=== PATIENT | female | born 1940 | race Caucasian/White ===

== ENCOUNTER 2023-12-14 18:31 | Inpatient (IN) | payer MEDICARE ==
--- NOTE | 2023-12-14 19:12 | ED ---
Recheck HPI - General Chief Complaint: Recheck/Abnormal Lab/Rx Stated Complaint: Infection Time Seen by Provider: 12/14/23 18:35 Source: EMS, RN notes reviewed, old records reviewed, Caregiver Mode of arrival: EMS Limitations: no limitations - History of Present Illness Initial Comments: This is a 83-year-old female to the ER for evaluation of debility. Patient is approaching end-of-life comfort care situation, patient has significant areas and aspects of her body that have pressure sores secondary to diminished mobility or unable to move on her own. He is here due to different pain issues that she does suffer from she also has a old lumbar spinal fracture that is being rejected by her body and protruding through her skin in her back that is i noperable. Patient presents with just severe pain generalized pain body aches and pains MD Complaint: wound re-check, abnormal lab, needs IV antibiotics, medication refill request -: days(s) Returns Today for: wound recheck, cellulitis follow-up, needs IV antibiotics, persistent/worsening pain related to initial visit Symptoms Since Prior Visit: no new symptoms Associated Symptoms: fever, chills, malaise, nausea Treatments Prior to Arrival: other (0) - Related Data Home Medications Medication Instructions Recorded Confirmed Acetaminophen [Tylenol Extra 500 mg PO Q6H PRN 12/14/23 12/17/23 Strength] Furosemide [Lasix] 20 mg PO DAILY 12/14/23 12/17/23 Lansoprazole [Prevacid] 30 mg PO DAILY 12/14/23 12/17/23 Losartan Potassium 50 mg PO DAILY 12/14/23 12/17/23 Magnesium Oxide [Mag-Ox] 400 mg PO DAILY 12/14/23 12/17/23 Morphine Sulfate ER [Ms Contin] 30 mg PO Q12HR 12/14/23 12/17/23 Silver Sulfadiazine [Silver 1 applic TOPICAL DIRECTED 12/14/23 12/17/23 Sulfadiazine 1%] Allergies Allergy/AdvReac Type Severity Reaction Status Date / Time acetaminophen [From Vicodin] Allergy Rash/Hives Verified 12/14/23 18:45 hydrocodone [From Vicodin] Allergy Rash/Hives Verified 12/14/23 18:45 levofloxacin [From Levaquin] Allergy Rash/Hives Verified 12/14/23 18:45 lidocaine Allergy Rash/Hives Verified 12/14/23 18:45 Penicillins Allergy Rash/Hives Verified 12/14/23 18:45 sulfamethoxazole Allergy Rash/Hives Verified 12/14/23 18:45 [From Bactrim] trimethoprim [From Bactrim] Allergy Rash/Hives Verified 12/14/23 18:45 Review of Systems ROS Statement: Those systems with pertinent positive or pertinent negative responses have been documented in the HPI. ROS Other: All systems not noted in ROS Statement are negative. Past Medical History Past Medical History: Hypertension History of Any Multi-Drug Resistant Organisms: None Reported Past Surgical History: Hysterectomy, Orthopedic Surgery Past Psychological History: No Psychological Hx Reported Smoking Status: Former smoker General Exam Limitations: no limitations, altered mental status General appearance: alert, in no apparent distress, anxious, in distress Head exam: Present: atraumatic, normocephalic, normal inspection Eye exam: Present: normal appearance, PERRL, EOMI. Absent: scleral icterus, conjunctival injection, periorbital swelling ENT exam: Present: normal exam, mucous membranes moist Neck exam: Present: normal inspection. Absent: tenderness, meningismus, lymphadenopathy Respiratory exam: Present: normal lung sounds bilaterally. Absent: respiratory distress, wheezes, rales, rhonchi, stridor Cardiovascular Exam: Present: regular rate, normal rhythm, normal heart sounds. Absent: systolic murmur, diastolic murmur, rubs, gallop, clicks GI/Abdominal exam: Present: soft, normal bowel sounds. Absent: distended, tenderness, guarding, rebound, rigid Extremities exam: Present: normal inspection, full ROM, normal capillary refill. Absent: tenderness, pedal edema, joint swelling, calf tenderness Back exam: Present: normal inspection Neurological exam: Present: alert, oriented X3, CN II-XII intact Psychiatric exam: Present: normal affect, normal mood Skin exam: Present: warm, dry, intact, normal color. Absent: rash Course Vital Signs 12/14/23 12/14/23 12/14/23 18:37 22:05 23:06 Temperature 98.6 F Pulse Rate 75 101 H 95 Pulse Rate [ Right Supine] Respiratory 18 16 Rate Blood Pressure 105/55 102/40 Blood Pressure [Right Arm Supine] O2 Sat by Pulse 90 L 97 Oximetry 12/15/23 12/15/23 12/15/23 02:00 05:43 06:33 Temperature Pulse Rate 96 98 105 H Pulse Rate [ Right Supine] Respiratory 20 16 20 Rate Blood Pressure 108/50 100/56 116/51 Blood Pressure [Right Arm Supine] O2 Sat by Pulse 95 100 95 Oximetry 12/15/23 12/15/23 12/15/23 07:34 08:10 10:51 Temperature Pulse Rate 98 108 H Pulse Rate [ Right Supine] Respiratory 14 18 Rate Blood Pressure 101/46 151/72 Blood Pressure [Right Arm Supine] O2 Sat by Pulse 94 L 100 98 Oximetry 12/15/23 12/15/23 12/15/23 12:00 16:00 20:00 Temperature 97.9 F 97.9 F Pulse Rate Pulse Rate [ 105 H 98 Right Supine] Respiratory 18 18 16 Rate Blood Pressure Blood Pressure 110/68 142/79 124/58 [Right Arm Supine] O2 Sat by Pulse 91 L 96 98 Oximetry - Reevaluation(s) Reevaluation #1: 12/14/23 21:44 Medical records reviewed Reevaluation #2: 12/14/23 21:44 Patient has relatively no change in symptoms here in the ER Reevaluation #3: 12/14/23 21:44 Patient informed of results questions answered Reevaluation #4: Was pt. sent in by a medical professional or institution (, PA, HOSPITAL SECURITY OFFICER, urgent care, hospital, or intermediate...) When possible be specific @ -no Did you speak to anyone other than the patient for history (EMS, parent, family, police, friend...)? What history was obtained from this source @ -no Did you review nursing and triage notes (agree or disagree)? Why? @ -agree Are old charts reviewed (outside hosp., previous admission, EMS record, old EKG, old radiological studies, urgent care reports/EKG's, intermediate records)? Report findings @ -yes Differential Diagnosis (chest pain, altered mental status, abdominal pain women, abdominal pain men, vaginal bleeding, weakness, fever, dyspnea, syncope, headache, dizziness, GI bleed, back pain, seizure, CVA, palpatations, mental health, musculoskeletal)? @ -prior EKG interpreted by me (3pts min.). @ -yes X-rays interpreted by me (1pt min.). @ -yes negative for acute disease CT interpreted by me (1pt min.). @ -no U/S interpreted by me (1pt. min.). @ -no What testing was considered but not performed or refused? (CT, X-rays, U/S, labs)? Why? @ -none What meds were considered but not given or refused? Why? @ -none Did you discuss the management of the patient with other professionals (professionals i.e. Dr., PA, HOSPITAL SECURITY OFFICER, lab, RT, psych nurse, social studies teacher, want ad supervisor, teacher, [employer] officer, manager case management)? Give summary @ -no Was smoking cessation discussed for >3mins.? @ -no Were there social determinants of health that impacted care today? How? (Homelessness, low income, unemployed, alcoholism, drug addiction, transportation, low edu. Level, literacy, decrease access to med. care, halfway, rehab)? @ -none Was there de-escalation of care discussed even if they declined (Discuss DNR or withdrawal of care, Hospice)? DNR status @ -no What co-morbidities impacted this encounter? (DM, HTN, Smoking, COPD, CAD, Cancer, CVA, ARF, Chemo, Hep., AIDS, mental health diagnosis, sleep apnea, morbid obesity)? @ -none Was patient admitted / discharged? Hospital course, mention meds given and route, prescriptions, significant lab abnormalities, going to OR and other pertinent info. @ - 83 female to ER with multiple wounds secondary to surgical complications as well as debility with ulcers secondary to immobility. Patient has infections of these areas and will admit for significant IV antibiotics with really elevated white blood cell count sepsis Admitted Was critical care preformed (if so, how long)? @ -yes31 Undiagnosed new problem with uncertain prognosis? @ -no Drug Therapy requiring intensive monitoring for toxicity (Heparin, Nitro, Insulin, Cardizem)? @ -no Were any procedures done? @ -no Diagnosis/symptom? @ -Sepsis wound infection, chronic nonhealing wound Acute, or Chronic, or Acute on Chronic? @ -Acute Uncomplicated (without systemic symptoms) or Complicated (systemic symptoms)? @ -Complicated Side effects of treatment? @ -no Exacerbation, Progression, or Severe Exacerbation? @ -exacerbation Poses a threat to life or bodily function? How? (Chest pain, USA, OK, pneumonia, PE, COPD, DKA, ARF, appy, cholecystitis, CVA, Diverticulitis, Homicidal, Renetta cidal, threat to staff... and all critical care pts) @ -yes extremes of age Reevaluation #5: Differential Weakness: Hypoglycemia, shock, sepsis, hyponatremia, anemia, infection, OK, ETOH, adverse medicine reaction, overdose, stroke, this is not meant to be an all-inclusive list. - Consultations Consultation #1: Spoke with [facility] who agrees to admit this patient Procedures - Sepsis Sepsis Focused Exam #1 Time Sepsis Criteria Met: 20:00 Sepsis Focused Exam Date: 12/14/23 Sepsis Focused Exam Time: 23:55 Sepsis Focused Exam Complete: Yes Vital Signs & RN Notes Reviewed: Yes Capillary Refill: < 2 Seconds: Fingers, Toes Peripheral Pulses: Normal: Radial (R), Radial (L), Posterior Tibialis (R), Pos terior Tibialis (L), Dorsalis Pedis (R), Dorsalis Pedis (L) Skin Color: Normal for Patient, Flushed Respiratory Exam: respiratory distress, wheezes Cardiovascular Exam: regular rate Medical Decision Making - Medical Decision Making 83 female to ER with multiple wounds secondary to surgical complications as well as debility with ulcers secondary to immobility. Patient has infections of these areas and will admit for significant IV antibiotics with really elevated white blood cell count sepsis - Lab Data Result diagrams: 12/17/23 08:17 12/16/23 10:20 Lab Results 12/14/23 12/14/23 12/14/23 Range/Units 19:17 19:17 19:17 WBC 35.7 H (3.8-10.6) k/uL RBC 5.00 (3.80-5.40) m/uL Hgb 14.6 (11.4-16.0) gm/dL Hct 46.3 H (34.0-46.0) % MCV 92.7 (80.0-100.0) fL MCH 29.3 (25.0-35.0) pg MCHC 31.6 (31.0-37.0) g/dL RDW 13.1 (11.5-15.5) % Plt Count 508 H (150-450) k/uL MPV 9.2 Neutrophils % (Manual) 86 % Band Neuts % (Manual) 9 % Lymphocytes % (Manual) 2 % Monocytes % (Manual) 3 % Metamyelocytes % 1 % Neutrophils # (Manual) 33.90 H (1.3-7.7) k/uL Lymphocytes # (Manual) 0.71 L (1.0-4.8) k/uL Monocytes # (Manual) 1.07 H (0-1.0) k/uL Metamyelocytes # (Man) 0.36 H (0) k/uL Nucleated RBCs 0 (0-0) /100 WBC Manual Slide Review Performed PT 11.4 (10.0-12.5) sec INR 1.0 (<1.2) APTT 36.4 H (22.0-30.0) sec Sodium 130 L (137-145) mmol/L Potassium 3.4 L (3.5-5.1) mmol/L Chloride 89 L (98-107) mmol/L Carbon Dioxide 20 L (22-30) mmol/L Anion Gap 21 mmol/L BUN 75 H (7-17) mg/dL Creatinine 3.37 H (0.52-1.04) mg/dL Est GFR (CKD-EPI)AfAm 14 (>60 ml/min/1.73 sqM) Est GFR (CKD-EPI)NonAf 12 (>60 ml/min/1.73 sqM) Glucose 69 L (74-99) mg/dL Lactic Ac Sepsis Rflx Plasma Lactic Acid Messi (0.7-2.0) mmol/L Calcium 8.6 (8.4-10.2) mg/dL Phosphorus 6.4 H (2.5-4.5) mg/dL Magnesium 2.0 (1.6-2.3) mg/dL Total Bilirubin 0.7 (0.2-1.3) mg/dL AST 67 H (14-36) U/L ALT 22 (4-34) U/L Alkaline Phosphatase 120 (38-126) U/L Troponin I (0.000-0.034) ng/mL NT-Pro-B Natriuret Pep 3900 pg/mL Total Protein 7.1 (6.3-8.2) g/dL Albumin 3.9 (3.5-5.0) g/dL 12/14/23 12/14/23 12/14/23 Range/Units 19:17 19:17 19:55 WBC (3.8-10.6) k/uL RBC (3.80-5.40) m/uL Hgb (11.4-16.0) gm/dL Hct (34.0-46.0) % MCV (80.0-100.0) fL MCH (25.0-35.0) pg MCHC (31.0-37.0) g/dL RDW (11.5-15.5) % Plt Count (150-450) k/uL MPV Neutrophils % (Manual) % Band Neuts % (Manual) % Lymphocytes % (Manual) % Monocytes % (Manual) % Metamyelocytes % % Neutrophils # (Manual) (1.3-7.7) k/uL Lymphocytes # (Manual) (1.0-4.8) k/uL Monocytes # (Manual) (0-1.0) k/uL Metamyelocytes # (Man) (0) k/uL Nucleated RBCs (0-0) /100 WBC Manual Slide Review PT (10.0-12.5) sec INR (<1.2) APTT (22.0-30.0) sec Sodium (137-145) mmol/L Potassium (3.5-5.1) mmol/L Chloride (98-107) mmol/L Carbon Dioxide (22-30) mmol/L Anion Gap mmol/L BUN (7-17) mg/dL Creatinine (0.52-1.04) mg/dL Est GFR (CKD-EPI)AfAm (>60 ml/min/1.73 sqM) Est GFR (CKD-EPI)NonAf (>60 ml/min/1.73 sqM) Glucose (74-99) mg/dL Lactic Ac Sepsis Rflx Y Plasma Lactic Acid Messi 2.1 H* (0.7-2.0) mmol/L Calcium (8.4-10.2) mg/dL Phosphorus (2.5-4.5) mg/dL Magnesium (1.6-2.3) mg/dL Total Bilirubin (0.2-1.3) mg/dL AST (14-36) U/L ALT (4-34) U/L Alkaline Phosphatase (38-126) U/L Troponin I 0.064 H* (0.000-0.034) ng/mL NT-Pro-B Natriuret Pep pg/mL Total Protein (6.3-8.2) g/dL Albumin (3.5-5.0) g/dL - EKG Data -: EKG Interpreted by Me (EKG is sinus tachycardia 122 AK 131 QRS 90 QTc 410) - Radiology Data Radiology results: report reviewed (Chest x-ray is negative for acute disease), image reviewed Critical Care Time Critical Care Time: Yes Total Critical Care Time: 31 Disposition Clinical Impression: Stage II pressure ulcer of left hip, Unspecified hydronephrosis, Stage II pressure ulcer of sacral region, 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
[2023-12-14] MEDS: MORPHINE SULFATE 4 MG/ML SYRINGE IV STA (19:33)
[2023-12-14] MEDS: SODIUM CHLORIDE 0.9% 1,000 ML IV STA ×2 (19:33→22:50)
[2023-12-14] MEDS: ONDANSETRON 4 MG/2 ML VIAL IVP STA (19:34)
[2023-12-14 19:35] LABS: HCT 46.3 % (34.0-46.0); HGB 14.6 gm/dL (11.4-16.0); MCH 29.3 pg (25.0-35.0); MCHC 31.6 g/dL (31.0-37.0); MCV 92.7 fL (80.0-100.0); Mean Platelet Volume 9.2; Platelet Count 508 k/uL (150-450); RDW 13.1 % (11.5-15.5); WBC 35.7 k/uL (3.8-10.6)
[2023-12-14 19:46] LABS: Partial Thromboplastin Time 36.4 sec (22.0-30.0); Prothrombin Time 11.4 sec (10.0-12.5)
[2023-12-14 19:50] LABS: ALT 22 U/L (4-34); AST 67 U/L (14-36); African American GFR (CKD) 14 (>60 ml/min/1.73 sqM); Albumin 3.9 g/dL (3.5-5.0); Alkaline Phosphatase 120 U/L (38-126); Anion Gap 21 mmol/L; Blood Urea Nitrogen 75 mg/dL (7-17); Calcium 8.6 mg/dL (8.4-10.2); Carbon Dioxide 20 mmol/L (22-30); Chloride 89 mmol/L (98-107); Glucose 69 mg/dL (74-99); Non-African American GFR(CKD) 12 (>60 ml/min/1.73 sqM); Phosphorus 6.4 mg/dL (2.5-4.5); Potassium 3.4 mmol/L (3.5-5.1); Sodium 130 mmol/L (137-145); Total Bilirubin 0.7 mg/dL (0.2-1.3); Total Protein 7.1 g/dL (6.3-8.2)
[2023-12-14 19:58] LABS: NT-Pro-B-Type Natriuretic Pept 3900 pg/mL
[2023-12-14 20:08] LABS: Band Neutrophils % 9 %; Lymphocytes # (M) 0.71 k/uL (1.0-4.8); Metamyelocytes # (M) 0.36 k/uL (0); Metamyelocytes % 1 %; Monocytes # (M) 1.07 k/uL (0-1.0); Neutrophils % (M) 86 %; Nucleated Red Blood Cells 0 /100 WBC (0-0); Total Cells Counted 200
[2023-12-14] MEDS ORDERED: VANCOMYCIN IV PER PHARMACY 1 EACH MISC MISCELLANE PRN (21:40)
[2023-12-14] MEDS ORDERED: NALOXONE 0.4 MG/ML 1 ML VIAL IV PRN (21:41)
[2023-12-14] MEDS ORDERED: ONDANSETRON 4 MG/2 ML VIAL IVP PRN (21:41)
[2023-12-14] MEDS ORDERED: IPRATROPIUM-ALBUTEROL 3 ML NEB INHALATION PRN (21:43)
[2023-12-14] MEDS: IPRATROPIUM-ALBUTEROL 3 ML NEB INHALATION STA (22:03)
[2023-12-14] MEDS: SODIUM CHLORIDE 0.9% 500 ML 500 ML IV STA (22:49)
[2023-12-14] MEDS: SODIUM CHLORIDE 0.9% 500 ML 500 ML IV SCH (22:50)
[2023-12-14] MEDS: VANCOMYCIN 750 MG in SODIUM CHLORIDE 0.9% 250 ML IVPB ONE (22:51)
[2023-12-14] MEDS: HYDROCORTISONE SUCCINATE 100 MG/2 ML VIAL IV STA (23:30)
--- NOTE | 2023-12-14 23:45 | XR ---
EXAM: XR Chest, 1 View CLINICAL HISTORY: ITS.REASON XR Reason: weak TECHNIQUE: Frontal view of the chest. COMPARISON: No relevant prior studies available. FINDINGS: Lungs: Emphysema. No consolidation. Pleural space: Unremarkable. No pleural effusion or pneumothorax. Heart: Unremarkable. No cardiomegaly or vascular congestion. Bones/joints: Partially imaged fixation hardware in the lower thoracic spine with mid thoracic vertebral augmentation. No fracture. Vasculature: Calcified thoracic aorta. IMPRESSION: No acute findings in the chest.
[2023-12-15] MEDS: SODIUM CHLORIDE 0.9% 1,000 ML IV SCH (02:02)
[2023-12-15] MEDS: MORPHINE SULFATE 4 MG/ML SYRINGE IV PRN (02:24)
[2023-12-15 03:45] LABS: Basophils # (A) 0.1 k/uL (0-0.2); Basophils % (A) 1 %; Eosinophils # (A) 0.1 k/uL (0-0.7); Eosinophils % (A) 1 %; Lymphocytes # (A) 0.3 k/uL (1.0-4.8); Lymphocytes % (A) 1 %; MCH 29.8 pg (25.0-35.0); MCHC 31.8 g/dL (31.0-37.0); MCV 93.5 fL (80.0-100.0); Mean Platelet Volume 7.9; Monocytes # (A) 0.6 k/uL (0-1.0); Monocytes % (A) 2 %; Neutrophils # (A) 23.4 k/uL (1.3-7.7); Neutrophils % (A) 95 %; Platelet Count 313 k/uL (150-450); RBC 3.85 m/uL (3.80-5.40); RDW 13.1 % (11.5-15.5); WBC 24.8 k/uL (3.8-10.6)
[2023-12-15 03:47] LABS: HGB 11.5 gm/dL (11.4-16.0)
[2023-12-15 04:01] LABS: ALT 19 U/L (4-34); AST 61 U/L (14-36); African American GFR (CKD) 16 (>60 ml/min/1.73 sqM); Albumin 2.3 g/dL (3.5-5.0); Alkaline Phosphatase 63 U/L (38-126); Anion Gap 16 mmol/L; Blood Urea Nitrogen 75 mg/dL (7-17); Carbon Dioxide 14 mmol/L (22-30); Chloride 102 mmol/L (98-107); Glucose 79 mg/dL (74-99); Magnesium 1.8 mg/dL (1.6-2.3); Non-African American GFR(CKD) 14 (>60 ml/min/1.73 sqM); Phosphorus 5.3 mg/dL (2.5-4.5); Potassium 3.5 mmol/L (3.5-5.1); Sodium 132 mmol/L (137-145); Total Bilirubin 0.4 mg/dL (0.2-1.3); Total Protein 4.8 g/dL (6.3-8.2)
[2023-12-15] MEDS: VANCOMYCIN 750 MG in SODIUM CHLORIDE 0.9% 250 ML IVPB ONE (12:25)
--- NOTE | 2023-12-15 12:52 | US ---
EXAMINATION TYPE: US kidneys/renal and bladder DATE OF EXAM: 12/15/2023 COMPARISON: NONE CLINICAL INDICATION: Female, 83 years old with history of Connie; EXAM MEASUREMENTS: Right Kidney: 7.2 x 4.5 x 3.9 cm Left Kidney: Unable to image Limited exam due to patient movement and non cooperation. Left kidney and bladder not imaged due to p atient declining Right Kidney: Moderate to severe hydronephrosis noted assessment for mass limited. No obvious calcif ications. Left Kidney: Patient was uncooperative throughout exam and declined continuing the exam Bladder: Patient declined IMPRESSION: Moderate to severe right-sided hydronephrosis. Limited assessment of the left kidney and bladder.
--- NOTE | 2023-12-15 13:58 | P.NPCON ---
History of Present Illness - Reason for Consult acute renal failure - History of Present Illness patient is an 83-year-old female who was admitted to the hospital with mental status changes as per family. Patient has an old spinal fracture and has a protruding bone through the skin. She is not a surgical candidate and has had been complaining of multiple aches and pains. Patient admits to history of urinary tract infections but has not seen a wellness program administrator previously. It is unclear if there is underlying history of chronic kidney disease. Patient states she has been voiding but has had a Wells catheter as previously. History of diarrhea recently according to the family. Blood pressure is on the lower side. Patient was on losartan which is currently on hold. maintained on IV fluids. serum creatinine was 3.3 on admission and decreased to 3.0 today. no previous labs available for comparison. chest x-ray is unremarkable. Ultrasound of the kidneys shows moderate to severe right hydronephrosis. Patient refused to have the exam continued. Review of Systems as per HPI. Past Medical History Past Medical History: Hypertension History of Any Multi-Drug Resistant Organisms: None Reported Past Surgical History: Hysterectomy, Orthopedic Surgery Past Psychological History: No Psychological Hx Reported Smoking Status: Former smoker Medications and Allergies Home Medications Medication Instructions Recorded Confirmed Type Acetaminophen [Tylenol Extra 500 mg PO Q6H PRN 12/14/23 12/14/23 History Strength] Furosemide [Lasix] 20 mg PO DAILY 12/14/23 12/15/23 History Lansoprazole [Prevacid] 30 mg PO DAILY 12/14/23 12/15/23 History Losartan Potassium 50 mg PO DAILY 12/14/23 12/15/23 History Magnesium Oxide [Mag-Ox] 400 mg PO DAILY 12/14/23 12/14/23 History Morphine Sulfate ER [Ms Contin] 30 mg PO Q12HR 12/14/23 12/14/23 History Silver Sulfadiazine [Silver 1 applic TOPICAL DIRECTED 12/14/23 12/14/23 History Sulfadiazine 1%] Allergies Allergy/AdvReac Type Severity Reaction Status Date / Time acetaminophen [From Vicodin] Allergy Rash/Hives Verified 12/14/23 18:45 hydrocodone [From Vicodin] Allergy Rash/Hives Verified 12/14/23 18:45 levofloxacin [From Levaquin] Allergy Rash/Hives Verified 12/14/23 18:45 lidocaine Allergy Rash/Hives Verified 12/14/23 18:45 Penicillins Allergy Rash/Hives Verified 12/14/23 18:45 sulfamethoxazole Allergy Rash/Hives Verified 12/14/23 18:45 [From Bactrim] trimethoprim [From Bactrim] Allergy Rash/Hives Verified 12/14/23 18:45 Physical Exam Vitals: Vital Signs Temp Pulse Resp BP Pulse Ox 12/15/23 10:51 108 H 18 151/72 98 12/15/23 08:10 100 12/15/23 07:34 98 14 101/46 94 L 12/15/23 06:33 105 H 20 116/51 95 12/15/23 05:43 98 16 100/56 100 12/15/23 02:00 96 20 108/50 95 12/14/23 23:06 95 16 102/40 97 12/14/23 22:05 101 H 12/14/23 18:37 98.6 F 75 18 105/55 90 L Intake and Output 12/14/23 12/15/23 12/15/23 22:59 06:59 14:59 Other: Weight 38.555 kg patient is awake, comfortable, no acute distress. Examination of the heart S1 and S2 Examination of the lungs bilateral breath sounds are heard Abdomen is soft nontender examination of lower extremity shows no evidence of edema LOG DECK TENDER exam shows patient is moving all 4 extremities. Results - Lab Results Most recent lab results Calcium 7.0 mg/dL (8.4-10.2) L 12/15/23 03:28 Phosphorus 5.3 mg/dL (2.5-4.5) H 12/15/23 03:28 Magnesium 1.8 mg/dL (1.6-2.3) 12/15/23 03:28 12/15/23 03:28 12/15/23 03:28 Assessment and Plan Assessment: 1. Acute kidney injury, obstructive uropathy as well as prerenal component. Need to rule out urine retention. Patient was uncooperative during ultrasound exam.check UA and bladder scan. 2. Anion gap metabolic acidosis secondary to acute kidney injury and lactic acidosis 3. Possible underlying chronic kidney disease 4. Hyperphosphatemia associated with acute kidney injury 5. History of hypertension with blood pressure currently low. Angiotensin receptor blockers on hold. 6. Hypovolemic hyponatremia improved with IV hydration. 7. Hypokalemia Plan: consult urology Switch IV fluids to IV bicarb. Repeat labs in a.m. Replace potassium Check UA If renal function deteriorates further patient is not an ideal candidate for renal replacement therapy.X Thank you for the consultation. We will continue to follow the patient with you during her hospitalization.
--- NOTE | 2023-12-15 14:32 | P.HPIM ---
History of Present Illness H&P Date: 12/15/23 History of present illness; patient is 83-year-old lady with chronic debility and multiple back surgeries who was brought in the ER for evaluation for weakness. Patient is a poor historian and most of the history has been taken from the electronic medical records. According to which patient just recently moved from [place] where she was living with her daughter and apparently was not in best living conditions being taken care of. Patient brought to [place] by her other daughter. Patient has history of back surgery with a chronic wound on the back. Patient has generalized body aches and severe back pain patient moans on being moved or changing positions. Patient has multiple sores on her body. Patient unable to move on her own. Because of these complaints, patient was brought to the ER Initial lab work done in the ER showed WBC 35.7, hemoglobin 14.6, platelet count 508, INR 1, sodium 130, potassium 3.4, BUN 75, creatinine 3.37 lactate 2.1 phosphorus 6.4 troponin 0.064 proBNP 3900 EKG done in the ER showed heart rate of 122, no ST segment elevation or depression seen, T-wave inversions seen in leads II, III and aVF. Chest x-ray done in the ER showed no acute findings concerning for pneumonia Patient admitted to internal medicine service REVIEW OF SYSTEMS: CONSTITUTIONAL: Complains of lethargy and weakness HEENT: No recent visual problems or hearing problems. Denied any sore throat. CARDIOVASCULAR: No chest pain, orthopnea, PND, no palpitations, no syncope. PULMONARY: No shortness of breath, no cough, no hemoptysis. GASTROINTESTINAL: No diarrhea, no nausea, no vomiting, no abdominal pain. NEUROLOGICAL: No headaches, no weakness, no numbness. HEMATOLOGICAL: Denies any bleeding or petechiae. GENITOURINARY: Denies any burning micturition, frequency, or urgency. MUSCULOSKELETAL/RHEUMATOLOGICAL: As mentioned above ENDOCRINE: Denies any polyuria or polydipsia. The rest of the 14-point review of systems is negative. PHYSICAL EXAMINATION: GENERAL: The patient is alert, chronically ill looking HEENT: Pupils are round and equally reacting to light. EOMI. No scleral icterus. No conjunctival pallor. Normocephalic, atraumatic. No pharyngeal erythema. No thyromegaly. CARDIOVASCULAR: S1 and S2 present. No murmurs, rubs, or gallops. PULMONARY: Chest is clear to auscultation, no wheezing or crackles. ABDOMEN: Soft, nontender, nondistended, normoactive bowel sounds. No palpable organomegaly. MUSCULOSKELETAL: No joint swelling or deformity. EXTREMITIES: No cyanosis, clubbing, or pedal edema. NEUROLOGICAL: Gross neurological examination did not reveal any focal deficits. SKIN: Multiple pressure injuries, chronic wound on the back Assessment and plan Hyponatremia Hypokalemia Acute kidney injury Anion gap metabolic acidosis Hyperphosphatemia Lactic acidosis Elevated troponin Hypertension Monitor vital signs Monitor CBC Monitor CMP Continue telemetry monitoring Ordered blood cultures Ordered wound care Continue IV Rocephin and vancomycin Continue IV fluids Ultrasound of kidneys Ordered CT abdominal pelvis without contrast Consult ID Consult nephrology Labs and medication were reviewed.. Continue same treatment. Continue with symptomatic treatment. Resume home medication. Monitor labs and vitals. DVT and GI prophylaxis. Further recommendations as per clinical course of the patient Dictation was produced using [email or web address] dictation software. please excuse any grammatical, word or spelling errors. Past Medical History Past Medical History: Hypertension History of Any Multi-Drug Resistant Organisms: None Reported Past Surgical History: Hysterectomy, Orthopedic Surgery Past Psychological History: No Psychological Hx Reported Smoking Status: Former smoker Medications and Allergies Home Medications Medication Instructions Recorded Confirmed Type Acetaminophen [Tylenol Extra 500 mg PO Q6H PRN 12/14/23 12/14/23 History Strength] Furosemide [Lasix] 20 mg PO DAILY 12/14/23 12/15/23 History Lansoprazole [Prevacid] 30 mg PO DAILY 12/14/23 12/15/23 History Losartan Potassium 50 mg PO DAILY 12/14/23 12/15/23 History Magnesium Oxide [Mag-Ox] 400 mg PO DAILY 12/14/23 12/14/23 History Morphine Sulfate ER [Ms Contin] 30 mg PO Q12HR 12/14/23 12/14/23 History Silver Sulfadiazine [Silver 1 applic TOPICAL DIRECTED 12/14/23 12/14/23 History Sulfadiazine 1%] Allergies Allergy/AdvReac Type Severity Reaction Status Date / Time acetaminophen [From Vicodin] Allergy Rash/Hives Verified 12/14/23 18:45 hydrocodone [From Vicodin] Allergy Rash/Hives Verified 12/14/23 18:45 levofloxacin [From Levaquin] Allergy Rash/Hives Verified 12/14/23 18:45 lidocaine Allergy Rash/Hives Verified 12/14/23 18:45 Penicillins Allergy Rash/Hives Verified 12/14/23 18:45 sulfamethoxazole Allergy Rash/Hives Verified 12/14/23 18:45 [From Bactrim] trimethoprim [From Bactrim] Allergy Rash/Hives Verified 12/14/23 18:45 Physical Exam Vitals: Vital Signs Temp Pulse Resp BP Pulse Ox 12/15/23 08:10 100 12/15/23 07:34 98 14 101/46 94 L 12/15/23 06:33 105 H 20 116/51 95 12/15/23 05:43 98 16 100/56 100 12/15/23 02:00 96 20 108/50 95 12/14/23 23:06 95 16 102/40 97 12/14/23 22:05 101 H 12/14/23 18:37 98.6 F 75 18 105/55 90 L Intake and Output 12/14/23 12/15/23 12/15/23 22:59 06:59 14:59 Other: Weight 38.555 kg Results CBC & Chem 7: 12/15/23 03:28 12/15/23 03:28 Labs: Abnormal Lab Results - Last 24 Hours (Table) 12/14/23 12/14/23 12/14/23 Range/Units 19:17 19:17 19:17 WBC 35.7 H (3.8-10.6) k/uL Hct 46.3 H (34.0-46.0) % Plt Count 508 H (150-450) k/uL Neutrophils # (1.3-7.7) k/uL Neutrophils # (Manual) 33.90 H (1.3-7.7) k/uL Lymphocytes # (1.0-4.8) k/uL Lymphocytes # (Manual) 0.71 L (1.0-4.8) k/uL Monocytes # (Manual) 1.07 H (0-1.0) k/uL Metamyelocytes # (Man) 0.36 H (0) k/uL APTT 36.4 H (22.0-30.0) sec Sodium 130 L (137-145) mmol/L Potassium 3.4 L (3.5-5.1) mmol/L Chloride 89 L (98-107) mmol/L Carbon Dioxide 20 L (22-30) mmol/L BUN 75 H (7-17) mg/dL Creatinine 3.37 H (0.52-1.04) mg/dL Glucose 69 L (74-99) mg/dL Plasma Lactic Acid Messi (0.7-2.0) mmol/L Calcium (8.4-10.2) mg/dL Phosphorus 6.4 H (2.5-4.5) mg/dL AST 67 H (14-36) U/L Troponin I (0.000-0.034) ng/mL Total Protein (6.3-8.2) g/dL Albumin (3.5-5.0) g/dL 12/14/23 12/14/23 12/15/23 Range/Units 19:17 19:17 03:28 WBC 24.8 H (3.8-10.6) k/uL Hct (34.0-46.0) % Plt Count (150-450) k/uL Neutrophils # 23.4 H (1.3-7.7) k/uL Neutrophils # (Manual) (1.3-7.7) k/uL Lymphocytes # 0.3 L (1.0-4.8) k/uL Lymphocytes # (Manual) (1.0-4.8) k/uL Monocytes # (Manual) (0-1.0) k/uL Metamyelocytes # (Man) (0) k/uL APTT (22.0-30.0) sec Sodium (137-145) mmol/L Potassium (3.5-5.1) mmol/L Chloride (98-107) mmol/L Carbon Dioxide (22-30) mmol/L BUN (7-17) mg/dL Creatinine (0.52-1.04) mg/dL Glucose (74-99) mg/dL Plasma Lactic Acid Messi 2.1 H* (0.7-2.0) mmol/L Calcium (8.4-10.2) mg/dL Phosphorus (2.5-4.5) mg/dL AST (14-36) U/L Troponin I 0.064 H* (0.000-0.034) ng/mL Total Protein (6.3-8.2) g/dL Albumin (3.5-5.0) g/dL 12/15/23 Range/Units 03:28 WBC (3.8-10.6) k/uL Hct (34.0-46.0) % Plt Count (150-450) k/uL Neutrophils # (1.3-7.7) k/uL Neutrophils # (Manual) (1.3-7.7) k/uL Lymphocytes # (1.0-4.8) k/uL Lymphocytes # (Manual) (1.0-4.8) k/uL Monocytes # (Manual) (0-1.0) k/uL Metamyelocytes # (Man) (0) k/uL APTT (22.0-30.0) sec Sodium 132 L (137-145) mmol/L Potassium (3.5-5.1) mmol/L Chloride (98-107) mmol/L Carbon Dioxide 14 L (22-30) mmol/L BUN 75 H (7-17) mg/dL Creatinine 3.04 H (0.52-1.04) mg/dL Glucose (74-99) mg/dL Plasma Lactic Acid Messi (0.7-2.0) mmol/L Calcium 7.0 L (8.4-10.2) mg/dL Phosphorus 5.3 H (2.5-4.5) mg/dL AST 61 H (14-36) U/L Troponin I (0.000-0.034) ng/mL Total Protein 4.8 L (6.3-8.2) g/dL Albumin 2.3 L (3.5-5.0) g/dL
[2023-12-15 15:21] VITALS: BMI 16.6
--- NOTE | 2023-12-15 15:23 | CT ---
EXAMINATION TYPE: CT abdomen pelvis wo con DATE OF EXAM: 12/15/2023 COMPARISON: None HISTORY: 83-year-old female with leukocytosis, sepsis CT DLP: 341.1 mGycm. Automated exposure control for dose reduction was used. TECHNIQUE: Contiguous axial scanning of the abdomen and pelvis without IV contrast. Coronal and sagit deirdre reconstructions performed. FINDINGS: Chest reported separately. Moderate-sized hiatal hernia with a third of the stomach in the lower chest. Exam is limited by the lack of contrast and extensive patient motion. No obvious abnormality of the liver. Gallbladder is borderline hydropic at 4.0 cm wide with some laye ring gravel. No obvious wall thickening or surrounding inflammation. Noncontrast appearance of the adrenal glands, and spleen show no gross abnormality. Atrophic pancreas without gross abnormality but very limited assessment. There is severe bilateral hydronephrosis and hydroureter with marked pelvic floor relaxation and mode rate circumferential bladder wall thickening. No dilated small bowel, free fluid, or free air. Moderate generalized anasarca unchanged. No significant stool burden, with suggestion of moderate diffuse colonic wall thickening. Uterus is visualized. Ovaries not well delineated from nonopacified bowel loops. Previous intramedullary nail with screw fixation right proximal femur. Previous extensive surgical lumbar and pelvic fusion changes with wide laminectomies throughout the l umbar spine. Possible fluid at the laminectomy bed measuring 3.3 cm wide and 2.2 cm AP and potentiall y up to 7.8 cm craniocaudal. IMPRESSION: 1. Chest reported separately. Very limited exam due to extensive patient motion and lack of contrast . 2. Moderate pancolonic wall thickening. Correlate to exclude infectious pancolitis. 3. Severe bilateral hydronephrosis and hydroureter. No obstructing stone is seen. There is marked p elvic floor relaxation and moderate circumferential bladder wall thickening. Consider urology evaluat ion. 4. Extensive thoracolumbar and pelvic posterior fusion changes and wide laminectomy throughout the l umbar spine. Possible fluid collection in the laminectomy bed that may span 7.8 x 3.3 cm. Assessment limited by extensive metal hardware artifact. Correlate as to time since surgery. Postoperative serom a or other fluid collection are in the differential. 5. Moderate-sized hiatal hernia.
--- NOTE | 2023-12-15 15:28 | CT ---
EXAMINATION TYPE: CT chest wo con DATE OF EXAM: 12/15/2023 COMPARISON: Radiograph 12/14/2023 HISTORY: 83-year-old female with leukocytosis, sepsis TECHNIQUE: Contiguous axial scanning of the chest without IV contrast. Coronal/sagittal reconstructio ns performed. CT DLP: 219.9mGycm. Automatic exposure control utilized for a dose reduction. FINDINGS: Exam limited due to breathing motion and lack of contrast. Heart normal size without pericardial effusion. Extensive three-vessel coronary artery calcifications are present. Moderate atherosclerotic arch calcifications with conventional branching anatomy. Possible stenosis p roximal left subclavian artery given the atherosclerotic calcification. No obvious thoracic lymphadenopathy along for the exam limitations. There are trace bilateral pleural effusions with prominent dependent adjacent patchy airspace disease especially basilar lower lobes. Background mild emphysematous change. Abdomen reported separately. Bones: Extensive thoracolumbar posterior fusion changes. Posterior fusion changes extending from T10 down. Previous vertebroplasty T9. Age indeterminate, suspect chronic compression deformity T8 and to a lesser degree T6 given the lack of paravertebral soft tissue swelling. IMPRESSION: 1. Small effusions with patchy bibasilar airspace disease. Consider infectious or aspiration pneumoni tis. Background COPD. 2. Extensive three-vessel coronary artery calcifications. 3. Abdomen reported separately.
[2023-12-15] MEDS: POTASSIUM CHLORIDE ER 20 MEQ TAB.ER PO STA (17:00)
[2023-12-15] MEDS: DEXTROSE 5% IN WATER 1,000 ML with SODIUM BICARB (1 MEQ/ML) 150 ML IV SCH (18:48)
--- NOTE | 2023-12-16 07:28 | P.CONS ---
History of Present Illness - Reason for Consult Consult date: 12/15/23 Wounds Requesting physician: Miguel Armas - Chief Complaint Weakness x few days - History of Present Illness Patient is a 83-year-old female with a past medical history significant for hypertension chronic back pain in this patient who did have a history of lumbar spinal surgery with hardware and apparently has been dealing with a nonhealing wound and exposure of the hardware to the lumbar spine in this patient who has most of her care at [place] however the patient recently has moved patient has been brought into the hospital concerning for weakness patient to be complaining of generalized bodyaches and hurting all over and severe back pain worse with movement of the body without any radiation the patient denies high-grade fever or any chills and on presentation to the hospital the patient was afebrile patient was tachycardic but not hypotensive she has been mildly hypoxic requiring supplemental oxygen patient did have a white count of 35.7 with a left shift BUN/creatinine has been elevated AST is mildly elevated patient did have a chest x-ray no acute findings in the chest, patient has been admitted to hospital started on vancomycin and ceftriaxone infectious disease was consulted for further management of antibiotic therapy Review of Systems Positive points has been mentioned in HPI complete review could not be obtained because of his underlying mental status Past Medical History Past Medical History: Hypertension History of Any Multi-Drug Resistant Organisms: None Reported Past Surgical History: Hysterectomy, Orthopedic Surgery Past Psychological History: No Psychological Hx Reported Smoking Status: Former smoker Medications and Allergies Home Medications Medication Instructions Recorded Confirmed Type Acetaminophen [Tylenol Extra 500 mg PO Q6H PRN 12/14/23 12/17/23 History Strength] Furosemide [Lasix] 20 mg PO DAILY 12/14/23 12/17/23 History Lansoprazole [Prevacid] 30 mg PO DAILY 12/14/23 12/17/23 History Losartan Potassium 50 mg PO DAILY 12/14/23 12/17/23 History Magnesium Oxide [Mag-Ox] 400 mg PO DAILY 12/14/23 12/17/23 History Morphine Sulfate ER [Ms Contin] 30 mg PO Q12HR 12/14/23 12/17/23 History Silver Sulfadiazine [Silver 1 applic TOPICAL DIRECTED 12/14/23 12/17/23 History Sulfadiazine 1%] Allergies Allergy/AdvReac Type Severity Reaction Status Date / Time acetaminophen [From Vicodin] Allergy Rash/Hives Verified 12/14/23 18:45 hydrocodone [From Vicodin] Allergy Rash/Hives Verified 12/14/23 18:45 levofloxacin [From Levaquin] Allergy Rash/Hives Verified 12/14/23 18:45 lidocaine Allergy Rash/Hives Verified 12/14/23 18:45 Penicillins Allergy Rash/Hives Verified 12/14/23 18:45 sulfamethoxazole Allergy Rash/Hives Verified 12/14/23 18:45 [From Bactrim] trimethoprim [From Bactrim] Allergy Rash/Hives Verified 12/14/23 18:45 Physical Exam Vitals: Vital Signs Temp Pulse Resp BP Pulse Ox 12/15/23 10:51 108 H 18 151/72 98 12/15/23 08:10 100 12/15/23 07:34 98 14 101/46 94 L 12/15/23 06:33 105 H 20 116/51 95 12/15/23 05:43 98 16 100/56 100 12/15/23 02:00 96 20 108/50 95 12/14/23 23:06 95 16 102/40 97 12/14/23 22:05 101 H 12/14/23 18:37 98.6 F 75 18 105/55 90 L Intake and Output 12/15/23 12/15/23 12/15/23 06:59 14:59 22:59 Other: Weight 38.555 kg GENERAL DESCRIPTION: Elderly female lying in bed, no distress. No tachypnea or accessory muscle of respiration use. HEENT: Shows Pallor , no scleral icterus. Oral mucous membrane is dry. NECK: Trachea central, no thyromegaly. LUNGS: Unlabored breathing. Clear to auscultation anteriorly. No wheeze or crackle. HEART: S1, S2, regular rate and rhythm. No loud murmur ABDOMEN: Soft, no tenderness , guarding or rigidity, no organomegaly EXTREMITIES: No edema of feet. SKIN: Patient did have wound to the lumbar spine area no significant slough tissue NEUROLOGICAL: The patient is lethargic but arousable orientation cannot be determined Results CBC & Chem 7: 12/17/23 08:17 12/16/23 10:20 Labs: Abnormal Lab Results - Last 24 Hours (Table) 12/14/23 12/14/23 12/14/23 Range/Units 19:17 19:17 19:17 WBC 35.7 H (3.8-10.6) k/uL Hct 46.3 H (34.0-46.0) % Plt Count 508 H (150-450) k/uL Neutrophils # (1.3-7.7) k/uL Neutrophils # (Manual) 33.90 H (1.3-7.7) k/uL Lymphocytes # (1.0-4.8) k/uL Lymphocytes # (Manual) 0.71 L (1.0-4.8) k/uL Monocytes # (Manual) 1.07 H (0-1.0) k/uL Metamyelocytes # (Man) 0.36 H (0) k/uL APTT 36.4 H (22.0-30.0) sec Sodium 130 L (137-145) mmol/L Potassium 3.4 L (3.5-5.1) mmol/L Chloride 89 L (98-107) mmol/L Carbon Dioxide 20 L (22-30) mmol/L BUN 75 H (7-17) mg/dL Creatinine 3.37 H (0.52-1.04) mg/dL Glucose 69 L (74-99) mg/dL Plasma Lactic Acid Messi (0.7-2.0) mmol/L Calcium (8.4-10.2) mg/dL Phosphorus 6.4 H (2.5-4.5) mg/dL AST 67 H (14-36) U/L Troponin I (0.000-0.034) ng/mL Total Protein (6.3-8.2) g/dL Albumin (3.5-5.0) g/dL 12/14/23 12/14/23 12/15/23 Range/Units 19:17 19:17 03:28 WBC 24.8 H (3.8-10.6) k/uL Hct (34.0-46.0) % Plt Count (150-450) k/uL Neutrophils # 23.4 H (1.3-7.7) k/uL Neutrophils # (Manual) (1.3-7.7) k/uL Lymphocytes # 0.3 L (1.0-4.8) k/uL Lymphocytes # (Manual) (1.0-4.8) k/uL Monocytes # (Manual) (0-1.0) k/uL Metamyelocytes # (Man) (0) k/uL APTT (22.0-30.0) sec Sodium (137-145) mmol/L Potassium (3.5-5.1) mmol/L Chloride (98-107) mmol/L Carbon Dioxide (22-30) mmol/L BUN (7-17) mg/dL Creatinine (0.52-1.04) mg/dL Glucose (74-99) mg/dL Plasma Lactic Acid Messi 2.1 H* (0.7-2.0) mmol/L Calcium (8.4-10.2) mg/dL Phosphorus (2.5-4.5) mg/dL AST (14-36) U/L Troponin I 0.064 H* (0.000-0.034) ng/mL Total Protein (6.3-8.2) g/dL Albumin (3.5-5.0) g/dL 12/15/23 12/15/23 Range/Units 03:28 10:35 WBC (3.8-10.6) k/uL Hct (34.0-46.0) % Plt Count (150-450) k/uL Neutrophils # (1.3-7.7) k/uL Neutrophils # (Manual) (1.3-7.7) k/uL Lymphocytes # (1.0-4.8) k/uL Lymphocytes # (Manual) (1.0-4.8) k/uL Monocytes # (Manual) (0-1.0) k/uL Metamyelocytes # (Man) (0) k/uL APTT (22.0-30.0) sec Sodium 132 L (137-145) mmol/L Potassium (3.5-5.1) mmol/L Chloride (98-107) mmol/L Carbon Dioxide 14 L (22-30) mmol/L BUN 75 H (7-17) mg/dL Creatinine 3.04 H (0.52-1.04) mg/dL Glucose (74-99) mg/dL Plasma Lactic Acid Messi (0.7-2.0) mmol/L Calcium 7.0 L (8.4-10.2) mg/dL Phosphorus 5.3 H (2.5-4.5) mg/dL AST 61 H (14-36) U/L Troponin I 0.038 H* (0.000-0.034) ng/mL Total Protein 4.8 L (6.3-8.2) g/dL Albumin 2.3 L (3.5-5.0) g/dL Assessment and Plan (1) Allergy to multiple antibiotics Status: Acute Code(s): Z88.1 - ALLERGY STATUS TO OTHER ANTIBIOTIC AGENTS SNOMED Code(s): 054001526 (2) Leukocytosis Status: Acute Code(s): D72.829 - ELEVATED WHITE BLOOD CELL COUNT, UNSPECIFIED SNOMED Code(s): 726742985 (3) MRSA bacteremia Status: Acute Code(s): R78.81 - BACTEREMIA; B95.62 - METHICILLIN RESIS STAPH INFCT CAUSING DISEASES CLASSD [id number] SNOMED Code(s): 77256695155507587 (4) Sepsis Status: Acute Code(s): A41.9 - SEPSIS, UNSPECIFIED ORGANISM SNOMED Code(s): 59903004 Plan: 1patient presented to hospital with generalized weakness body aches and this patient who did have a chronic back pain multiple surgeries on the back I was able to review the picture taken by the daughter has the patient was complaining of severe pain and could not be moved around to evaluate the back she did have a wound and possible exposure of the hardware and high clinical suspicious for lumbar surgical site infection and possible abscess and need to call for the gra m-positive such as Staph aureus to be the likely pathogen 2-patient with multiple antibiotic ALLERGIES that would limit the number of antibiotic safe to use 3-renal insufficiency high risk of nephrotoxicity from vancomycin 4-we will discontinue vancomycin continue with Rocephin 5-add daptomycin to cover for the gram-positive while waiting for the culture to finalize 6will benefit from spine surgery evaluation Multiple question concern answered We will follow on clinical condition and cultures to further adjust medication if needed Thank you for this consultation we will follow the patient along with you Dictation was produced using [employer] dictation software. please excuse any grammatical, word or spelling errors. Time with Patient: Greater than 30
--- NOTE | 2023-12-16 12:21 | P.CONS ---
History of Present Illness - Reason for Consult Consult date: 12/16/23 wound care - History of Present Illness This is an 83-year-old patient being seen by the wound care center for multiple open ulcerations. Patient refuses to have ulcerations assessed. Information was obtained by nursing staff. Patient states that she does not want any treatment and she would just like to be left alone to . Patient has a left hip pressure ulcer stage II, sacral stage II pressure ulcer, medial back nonpressure ulceration with exposed hardware from previous back surgery. Patient was living in [place] with her daughter however her daughter from [place] felt that she was not getting the proper care and moved her to [place] for treatment. Patient is a poor historian unable to obtain information related to surgery or how long ulcerations have been present. Review of systems: Unable to obtain due to patient's mental status Physical exam: General Appearance: Alert, cooperative, no distress, appears stated age. Skin: See HPI all other Skin color, texture, tugor normal, no rashes or lesions. Neurologic: Alert oriented x3 Assessment: 1. Nonhealing ulceration with bone involvement without necrosis other site 2. Stage II pressure ulcer left hip 3. Stage II pressure ulcer sacral Plan: 1. Left hip and coccyx: Apply honey gel and bordered foam. Medial back ulceration apply absorptive silver, saline moist gauze and border foam. Change Wednesday. Turn patient every 2 hours. Consult for orthopedics to evaluate removal of hardware. Prognosis for medial back ulcer ulceration poor unless hardware is removed. Patient would benefit from advanced wound care and wound care center however at this time patient is refusing. Patient does not want any advanced treatment. Thank you for the consultation any questions please contact the wound care center DNP note has been reviewed and discussed with Dr. Chen and the impression and plan of care has been directed as dictated. Past Medical History Past Medical History: Hypertension History of Any Multi-Drug Resistant Organisms: None Reported Past Surgical History: Hysterectomy, Orthopedic Surgery Past Anesthesia/Blood Transfusion Reactions: No Reported Reaction, Unable to Obtain Past Psychological History: No Psychological Hx Reported Smoking Status: Former smoker Medications and Allergies Home Medications Medication Instructions Recorded Confirmed Type Acetaminophen [Tylenol Extra 500 mg PO Q6H PRN 12/14/23 12/14/23 History Strength] Furosemide [Lasix] 20 mg PO DAILY 12/14/23 12/15/23 History Lansoprazole [Prevacid] 30 mg PO DAILY 12/14/23 12/15/23 History Losartan Potassium 50 mg PO DAILY 12/14/23 12/15/23 History Magnesium Oxide [Mag-Ox] 400 mg PO DAILY 12/14/23 12/14/23 History Morphine Sulfate ER [Ms Contin] 30 mg PO Q12HR 12/14/23 12/14/23 History Silver Sulfadiazine [Silver 1 applic TOPICAL DIRECTED 12/14/23 12/14/23 History Sulfadiazine 1%] Allergies Allergy/AdvReac Type Severity Reaction Status Date / Time acetaminophen [From Vicodin] Allergy Rash/Hives Verified 12/14/23 18:45 hydrocodone [From Vicodin] Allergy Rash/Hives Verified 12/14/23 18:45 levofloxacin [From Levaquin] Allergy Rash/Hives Verified 12/14/23 18:45 lidocaine Allergy Rash/Hives Verified 12/14/23 18:45 Penicillins Allergy Rash/Hives Verified 12/14/23 18:45 sulfamethoxazole Allergy Rash/Hives Verified 12/14/23 18:45 [From Bactrim] trimethoprim [From Bactrim] Allergy Rash/Hives Verified 12/14/23 18:45 Physical Exam Vitals: Vital Signs Temp Pulse Pulse Resp BP Pulse Ox 12/16/23 09:20 97.8 F 106 H 106 H 18 132/60 96 12/16/23 04:45 97.0 F L 96 16 118/63 96 12/16/23 02:20 116 H 18 125/73 96 12/16/23 02:00 116 H 18 12/15/23 22:42 97.4 F L 110 H 16 128/54 100 12/15/23 20:00 16 124/58 98 12/15/23 16:00 97.9 F 98 18 142/79 96 Intake and Output 12/15/23 12/16/23 12/16/23 22:59 06:59 14:59 Intake Total 0 Output Total 250 Balance 0 -250 Intake: Oral 0 Output: Urine/Stool Mix 250 Other: Voiding Method External Catheter External Catheter # Voids 0 # Bowel Movements 0 Weight 38.555 kg Results CBC & Chem 7: 12/15/23 03:28 12/15/23 03:28 Labs: Microbiology - Last 24 Hours (Table) 12/14/23 19:00 Blood Culture Gram Stain - Preliminary Blood Blood Culture - Preliminary Presumptive MRSA 12/14/23 19:19 Blood Culture Gram Stain - Preliminary Blood Blood Culture - Preliminary Presumptive MRSA Molecular ID Assessment and Plan (1) Stage II pressure ulcer of left hip Current Visit: Yes Status: Acute Code(s): L89.222 - PRESSURE ULCER OF LEFT HIP, STAGE 2 SNOMED Code(s): 41044723269567 (2) Stage II pressure ulcer of sacral region Current Visit: Yes Status: Acute Code(s): L89.152 - PRESSURE ULCER OF SACRAL REGION, STAGE 2 SNOMED Code(s): 88049311935983 (3) 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
--- NOTE | 2023-12-16 12:53 | P.PN ---
Subjective Progress Note Date: 12/16/23 Principal diagnosis: Reason for follow-up with MRSA bacteremia Patient is a 83-year-old female with a past medical history significant for hypertension chronic back pain in this patient who did have a history of lumbar spinal surgery with hardware and apparently has been dealing with a nonhealing wound and exposure of the hardware to the lumbar spine, has been brought into the hospital for weakness generalized bodyaches noticed to have elevated white count workup which shows fluid collection in the laminectomy bed did have a positive blood culture with MRSA. On today's evaluation that is a 12/16/2023,the patient remains to be afebrile, patient is on 3 L nasal cannula supplemental oxygen and breathing comfortably in no distress patient is sleepy lethargic did not answer any question no vomiting or diarrhea reported no family member at the bedside. Labs pending from this morning blood culture with MRSA Objective - Vital Signs Vital signs: Vital Signs Temp 97.8 F 12/16/23 09:20 Pulse 106 H 12/16/23 09:20 Resp 18 12/16/23 09:20 BP 132/60 12/16/23 09:20 Pulse Ox 96 12/16/23 09:20 FiO2 Intake & Output 12/15/23 12/16/23 12/16/23 18:59 06:59 18:59 Intake Total 0 Output Total 250 Balance -250 Weight 38.555 kg 38.555 kg Intake: Oral 0 Output: Urine/Stool Mix 250 Other: Voiding Method External Catheter External Catheter # Voids 0 # Bowel Movements 0 - Exam GENERAL DESCRIPTION: An elderly female lying in bed in no distress RESPIRATORY SYSTEM: Unlabored breathing , decreased breath sounds at bases HEART: S1 S2 regular rate and rhythm , ABDOMEN: Soft , no tenderness EXTREMITIES: No edema feet - Labs CBC & Chem 7: 12/15/23 03:28 12/15/23 03:28 Labs: Abnormal Lab Results - Last 24 Hours (Table) 12/16/23 Range/Units 10:20 C-Reactive Protein 21.8 H (<1.0) mg/dL Microbiology - Last 24 Hours (Table) 12/14/23 19:00 Blood Culture Gram Stain - Preliminary Blood Blood Culture - Preliminary Presumptive MRSA 12/14/23 19:19 Blood Culture Gram Stain - Preliminary Blood Blood Culture - Preliminary Presumptive MRSA Molecular ID Assessment and Plan (1) MRSA bacteremia Current Visit: Yes Status: Acute Code(s): R78.81 - BACTEREMIA; B95.62 - METHICILLIN RESIS STAPH INFCT CAUSING DISEASES CLASSD [id number] SNOMED Code(s): 41520864454411250 (2) Leukocytosis Current Visit: Yes Status: Acute Code(s): D72.829 - ELEVATED WHITE BLOOD CELL COUNT, UNSPECIFIED SNOMED Code(s): 251506698 (3) Abscess in epidural space of lumbar spine Current Visit: Yes Status: Acute Code(s): G06.1 - INTRASPINAL ABSCESS AND GRANULOMA SNOMED Code(s): 582340520 (4) Allergy to multiple antibiotics Current Visit: Yes Status: Acute Code(s): Z88.1 - ALLERGY STATUS TO OTHER ANTIBIOTIC AGENTS SNOMED Code(s): 380077232 Plan: 1patient presented to hospital with generalized weakness body aches and this patient who did have a chronic back pain multiple surgeries on the back, now with evidence of MRSA bacteremia CT abdominal pelvis did shows evidence of fluid collection in the laminectomy bed concerning for an abscess 2-patient with multiple antibiotic ALLERGIES that would limit the number of antibiotic safe to use 3-renal insufficiency high risk of nephrotoxicity from vancomycin 4-patient benefit from spine surgery evaluation for possible drainage this has been discussed with admitting team. 5patient is covered with daptomycin to continue and monitor clinical course closely Dictation was produced using [employer] dictation software. please excuse any grammatical, word or spelling errors. Time with Patient: Less than 30
--- NOTE | 2023-12-16 13:09 | P.PN ---
Subjective Progress Note Date: 12/16/23 patient is 83-year-old lady with chronic debility and multiple back surgeries who was brought in the ER for evaluation for weakness. Patient is a poor historian and most of the history has been taken from the electronic medical records. According to which patient just recently moved from [place] where she was living with her daughter and apparently was not in best living conditions being taken care of. Patient brought to [place] by her other daughter. Patient has history of back surgery with a chronic wound on the back. Patient has generalized body aches and severe back pain patient moans on being moved or changing positions. Patient has multiple sores on her body. Patient unable to move on her own. Because of these complaints, patient was brought to the ER Initial lab work done in the ER showed WBC 35.7, hemoglobin 14.6, platelet count 508, INR 1, sodium 130, potassium 3.4, BUN 75, creatinine 3.37 lactate 2.1 phosphorus 6.4 troponin 0.064 proBNP 3900 EKG done in the ER showed heart rate of 122, no ST segment elevation or depression seen, T-wave inversions seen in leads III and aVF. Chest x-ray done in the ER showed no acute findings concerning for pneumonia Patient admitted to internal medicine service 12/15. Patient seen and examined. Patient continues to have back pain. Patient is not very compliant with treatment regimen. CT chest done showed small effusion with patchy bilateral basilar airspace disease. CT abdominal pelvis done showed bilateral hydronephrosis and hydroureter. Extensive thoracolumbar and pelvic posterior fusion changes and wide laminectomy throughout the lumbar spine. Possible fluid collection in the laminectomy bed that may span 7.8 x 3.3 cm. REVIEW OF SYSTEMS: CONSTITUTIONAL: No fever, no malaise,. CARDIOVASCULAR: No chest pain, no palpitations, no syncope. PULMONARY: No shortness of breath, no cough, GASTROINTESTINAL: No diarrhea, no nausea, no vomiting, no abdominal pain. NEUROLOGICAL: No headaches, no weakness, PHYSICAL EXAMINATION: GENERAL: The patient is alert and oriented x3, cachectic, chronically ill looking HEENT: Pupils are round and equally reacting to light. EOMI. No scleral icterus. No conjunctival pallor. Normocephalic, atraumatic. No pharyngeal erythema. No thyromegaly. CARDIOVASCULAR: S1 and S2 present. No murmurs, rubs, or gallops. PULMONARY: Chest is clear to auscultation, no wheezing or crackles. ABDOMEN: Soft, nontender, nondistended, normoactive bowel sounds. No palpable organomegaly. MUSCULOSKELETAL: No joint swelling or deformity. EXTREMITIES: No cyanosis, clubbing, or pedal edema. NEUROLOGICAL: Gross neurological examination did not reveal any focal deficits. SKIN: Lumbar area wound seen, Assessment and plan Hyponatremia Hypokalemia Acute kidney injury MRSA bacteremia Anion gap metabolic acidosis Bilateral hydronephrosis Hyperphosphatemia Lactic acidosis Elevated troponin Hypertension Severe malnutrition Cachectic Monitor vital signs Monitor CBC Monitor CMP Continue telemetry monitoring Follow-up on blood cultures Continue wound care Continue IV Rocephin daptomycin Continue IV fluids Continue wound care ID following Nephrology following Orthopedic spine consulted Labs and medication were reviewed.. Continue same treatment. Continue with symptomatic treatment. Resume home medication. Monitor labs and vitals. DVT and GI prophylaxis. Further recommendations as per clinical course of the patient Dictation was produced using [employer] dictation software. please excuse any grammatical, word or spelling errors. Objective - Vital Signs Vital signs: Vital Signs Temp 97.8 F 12/16/23 09:20 Pulse 106 H 12/16/23 09:20 Resp 18 12/16/23 09:20 BP 132/60 12/16/23 09:20 Pulse Ox 96 12/16/23 09:20 FiO2 Intake & Output 12/15/23 12/16/23 12/16/23 18:59 06:59 18:59 Intake Total 0 Output Total 250 Balance -250 Weight 38.555 kg 38.555 kg Intake: Oral 0 Output: Urine/Stool Mix 250 Other: Voiding Method External Catheter External Catheter # Voids 0 # Bowel Movements 0 - Labs CBC & Chem 7: 12/15/23 03:28 12/15/23 03:28 Labs: Abnormal Lab Results - Last 24 Hours (Table) 12/16/23 Range/Units 10:20 C-Reactive Protein 21.8 H (<1.0) mg/dL Microbiology - Last 24 Hours (Table) 12/14/23 19:00 Blood Culture Gram Stain - Preliminary Blood Blood Culture - Preliminary Presumptive MRSA 12/14/23 19:19 Blood Culture Gram Stain - Preliminary Blood Blood Culture - Preliminary Presumptive MRSA Molecular ID
[2023-12-16 13:29] LABS: Potassium 2.9 mmol/L (3.5-5.1)
[2023-12-16 13:30] LABS: African American GFR (CKD) 44 (>60 ml/min/1.73 sqM); Anion Gap 7 mmol/L; Blood Urea Nitrogen 54 mg/dL (7-17); Calcium 7.9 mg/dL (8.4-10.2); Carbon Dioxide 26 mmol/L (22-30); Chloride 102 mmol/L (98-107); Glucose 118 mg/dL (74-99); Non-African American GFR(CKD) 38 (>60 ml/min/1.73 sqM); Sodium 135 mmol/L (137-145)
--- NOTE | 2023-12-16 15:08 | P.PN ---
Subjective patient is seen for follow-up for acute kidney injury. Patient has just received pain medications for severe back pain. Daughters are present at bedside. Patient has not had much urine output in the external catheter. Labs are pending from today. I have discussed with the daughters that if renal function continues to worsen patient is not an ideal candidate for renal replacement therapy. I also discussed with them the fact that serum creatinine had improved slightly since admission and we will follow-up on the labs from today. urology has been consulted 4 bilateral hydronephrosis. Objective - Vital Signs Vital signs: Vital Signs Temp 97.8 F 12/16/23 09:20 Pulse 106 H 12/16/23 09:20 Resp 18 12/16/23 09:20 BP 132/60 12/16/23 09:20 Pulse Ox 96 12/16/23 09:20 FiO2 Intake & Output 12/15/23 12/16/23 12/16/23 18:59 06:59 18:59 Intake Total 0 Output Total 250 Balance -250 Weight 38.555 kg 38.555 kg 38.555 kg Intake: Oral 0 Output: Urine/Stool Mix 250 Other: Voiding Method External Catheter External Catheter # Voids 0 # Bowel Movements 0 - Exam patient is sleeping but arousable. Examination of the heart S1 and S2 Examination of the lungs bilateral breath sounds are heard Abdomen is soft nontender Examination of lower extremity shows no edema. Significant tenderness noted in the back area. patient is not allowing to examine - Labs CBC & Chem 7: 12/15/23 03:28 12/16/23 10:20 Labs: Abnormal Lab Results - Last 24 Hours (Table) 12/16/23 12/16/23 Range/Units 10:20 10:20 Sodium 135 L (137-145) mmol/L Potassium 2.9 L (3.5-5.1) mmol/L BUN 54 H (7-17) mg/dL Creatinine 1.29 H (0.52-1.04) mg/dL Glucose 118 H (74-99) mg/dL Calcium 7.9 L (8.4-10.2) mg/dL C-Reactive Protein 21.8 H (<1.0) mg/dL Microbiology - Last 24 Hours (Table) 12/14/23 19:00 Blood Culture Gram Stain - Preliminary Blood Blood Culture - Preliminary Presumptive MRSA 12/14/23 19:19 Blood Culture Gram Stain - Preliminary Blood Blood Culture - Preliminary Presumptive MRSA Molecular ID Assessment and Plan Assessment: 1. Acute kidney injury, obstructive uropathy as well as prerenal component. Patient was uncooperative during ultrasound exam. Computed tomography scan shows bilateral severe hydronephrosis. Labs are pending from today. Patient is not an ideal candidate for renal replacement therapy if renal function continues to deteriorate. 2. Anion gap metabolic acidosis secondary to acute kidney injury and lactic acidosis 3. Possible underlying chronic kidney disease 4. Hyperphosphatemia associated with acute kidney injury 5. History of hypertension with blood pressure currently low. Angiotensin receptor blockers on hold. 6. Hypovolemic hyponatremia improved with IV hydration. 7. Hypokalemia Plan: consult urology Check labs today continue IV fluids. Adjust type of fluid based on repeat labs from today. Repeat labs in a.m.
--- NOTE | 2023-12-16 15:34 | CDI ---
Documentation Clarification Form Date: 12/16/2023 02:53:00 PM From: Tasha Orosco RN, CCDS Phone: [phone] Admit Date: 12/14/2023 09:42:00 PM Patient Name: Chidi Olivera Visit Number: [id number] Discharge Date: ATTENTION: The Clinical Documentation Specialists (CDI) and [facility] Coding Staff appreciate your assistance in clarifying documentation. Please respond to the clarification below the line at the bottom and electronically sign. The CDI & [facility] Coding staff will review the response and follow-up if needed. Please note: Queries are made part of the Legal Health Record. If you have any questions, please contact the author of this message via ITS. Dr. Alfredo Cantor The patient has sepsis documented in the ED assessment. Based on this information and the findings below, is there an additional diagnosis that is clinically appropriate for this patient? History/Risk Factors: Hypertension, Former smoker Clinical Indicators: 83-year-old female to the ER has infections of these areas and will admit for significant IV antibiotics with really elevated white blood cell count sepsis 102/40 95 16 97% 1.5 L NC WBC 35.7 Neutrophils 33.90, NA 130, BUN35, CR 3.37, Lactic acid: 2.1 Blood cultures: (12/13) Preliminary Presumptive MRSA ID Consult: have a wound and possible exposure of the hardware and high clinical suspicious for lumbar surgical site infection and possible abscess and need to call for the gram-positive such as Staph aureus to be the likely pathogen. 12/15 ID: MRSA bacteremia. Abscess in epidural space of lumbar spine Treatment: Rocephin 2 GM IVPB Q 24 HRS 12/14-12/15 Daptomycin 250 MG IVPB Q 24 HRS 12/15 then Q 48 HRS 12/17 Vancomycin 250MG IVPB 12/13-12/14 ( PTD) Is there an additional diagnosis that is clinically appropriate for this patient? [x ] Sepsis, with MRSA bacteremia, present on admission due to abscess in the laminectomy site. [ ] Other, please specify [ ] Unable to determine SIRS Criteria: 2 or more of the following may indicate SIRS Temperature < 96.8F (36C) or > 101.0F (38.3C) Heart Rate > 90 bpm Respiratory Rate > 20 breaths/min or PaCO2 < 32 mmHg White Blood Cell Count > 12,000 or < 4,000 cells/mm3 or > 10% bands (Template Last Reviewed: July 2022) MTD
[2023-12-16] MEDS: LACTATED RINGERS 1,000 ML IV SCH (15:53)
[2023-12-16] MEDS: POTASSIUM CHLORIDE ER 20 MEQ TAB.ER PO STA (18:04)
[2023-12-16] MEDS: POTASSIUM CHLORIDE ER 20 MEQ TAB.ER PO ONE (20:59)
[2023-12-17 00:08] VITALS: RESP 18
[2023-12-17 08:49] VITALS: TEMP 97.4
[2023-12-17 10:27] LABS: HCT 38.6 % (34.0-46.0); HGB 12.6 gm/dL (11.4-16.0); MCHC 32.5 g/dL (31.0-37.0); MCV 92.3 fL (80.0-100.0); Mean Platelet Volume 10.4; RBC 4.18 m/uL (3.80-5.40); RDW 13.4 % (11.5-15.5); WBC 13.4 k/uL (3.8-10.6)
--- NOTE | 2023-12-17 11:04 | P.GSCN ---
History of Present Illness Consult date: 12/17/23 Reason for Consult: Hydronephrosis Requesting physician: Johanne Wesley History of present illness: The patient is an 83-year-old white female who previously lived in [place]. She was brought in by her daughters to oversee her care, which has been suboptimal. She is admitted with primary complaints of weakness and back pain. She has been found to have bilateral hydronephrosis. I am consulted for this reason. Upon questioning, she states that she has been treated for UTIs and kidney stones in the past. However, she does not appear to be a reliable historian. Review of Systems - Constitutional Reports lethargy, Reports weakness - Genitourinary Genitourinary: Reports as per HPI - Musculoskeletal Reports low back pain Past Medical History Past Medical History: Hypertension History of Any Multi-Drug Resistant Organisms: None Reported Past Surgical History: Hysterectomy, Orthopedic Surgery Past Anesthesia/Blood Transfusion Reactions: No Reported Reaction, Unable to Obtain Past Psychological History: No Psychological Hx Reported Smoking Status: Former smoker Medications and Allergies Home Medications Medication Instructions Recorded Confirmed Type Acetaminophen [Tylenol Extra 500 mg PO Q6H PRN 12/14/23 12/14/23 History Strength] Furosemide [Lasix] 20 mg PO DAILY 12/14/23 12/15/23 History Lansoprazole [Prevacid] 30 mg PO DAILY 12/14/23 12/15/23 History Losartan Potassium 50 mg PO DAILY 12/14/23 12/15/23 History Magnesium Oxide [Mag-Ox] 400 mg PO DAILY 12/14/23 12/14/23 History Morphine Sulfate ER [Ms Contin] 30 mg PO Q12HR 12/14/23 12/14/23 History Silver Sulfadiazine [Silver 1 applic TOPICAL DIRECTED 12/14/23 12/14/23 History Sulfadiazine 1%] Allergies Allergy/AdvReac Type Severity Reaction Status Date / Time acetaminophen [From Vicodin] Allergy Rash/Hives Verified 12/14/23 18:45 hydrocodone [From Vicodin] Allergy Rash/Hives Verified 12/14/23 18:45 levofloxacin [From Levaquin] Allergy Rash/Hives Verified 12/14/23 18:45 lidocaine Allergy Rash/Hives Verified 12/14/23 18:45 Penicillins Allergy Rash/Hives Verified 12/14/23 18:45 sulfamethoxazole Allergy Rash/Hives Verified 12/14/23 18:45 [From Bactrim] trimethoprim [From Bactrim] Allergy Rash/Hives Verified 12/14/23 18:45 Surgical - Exam Vital Signs Temp Pulse Resp BP Pulse Ox 98.6 F 75 18 105/55 90 L 12/14/23 18:37 12/14/23 18:37 12/14/23 18:37 12/14/23 18:37 12/14/23 18:37 - General well developed, well nourished, no distress - Respiratory normal respiratory effort - Abdomen Abdomen: soft, non tender, no guarding, no rigid, no rebound - Genitourinary normal external genitalia, normal perineum, other (The bladder is well sup ported. There is no evidence of pelvic prolapse.) Results - Labs 12/17/23 08:17 12/16/23 10:20 Abnormal Lab Results - Last 24 Hours (Table) 12/16/23 12/16/23 Range/Units 10:20 10:20 Sodium 135 L (137-145) mmol/L Potassium 2.9 L (3.5-5.1) mmol/L BUN 54 H (7-17) mg/dL Creatinine 1.29 H (0.52-1.04) mg/dL Glucose 118 H (74-99) mg/dL Calcium 7.9 L (8.4-10.2) mg/dL C-Reactive Protein 21.8 H (<1.0) mg/dL Microbiology - Last 24 Hours (Table) 12/14/23 19:00 Blood Culture Gram Stain - Preliminary Blood Blood Culture - Preliminary Presumptive MRSA 12/14/23 19:19 Blood Culture Gram Stain - Preliminary Blood Blood Culture - Preliminary Presumptive MRSA Molecular ID Diabetes panel 12/16/23 Range/Units 10:20 Sodium 135 L (137-145) mmol/L Potassium 2.9 L (3.5-5.1) mmol/L Chloride 102 (98-107) mmol/L Carbon Dioxide 26 (22-30) mmol/L BUN 54 H (7-17) mg/dL Creatinine 1.29 H (0.52-1.04) mg/dL Glucose 118 H (74-99) mg/dL Calcium 7.9 L (8.4-10.2) mg/dL Calcium panel 12/16/23 Range/Units 10:20 Calcium 7.9 L (8.4-10.2) mg/dL Pituitary panel 12/16/23 Range/Units 10:20 Sodium 135 L (137-145) mmol/L Potassium 2.9 L (3.5-5.1) mmol/L Chloride 102 (98-107) mmol/L Carbon Dioxide 26 (22-30) mmol/L BUN 54 H (7-17) mg/dL Creatinine 1.29 H (0.52-1.04) mg/dL Glucose 118 H (74-99) mg/dL Calcium 7.9 L (8.4-10.2) mg/dL Adrenal panel 12/16/23 Range/Units 10:20 Sodium 135 L (137-145) mmol/L Potassium 2.9 L (3.5-5.1) mmol/L Chloride 102 (98-107) mmol/L Carbon Dioxide 26 (22-30) mmol/L BUN 54 H (7-17) mg/dL Creatinine 1.29 H (0.52-1.04) mg/dL Glucose 118 H (74-99) mg/dL Calcium 7.9 L (8.4-10.2) mg/dL - Imaging CT scan - abdomen: report reviewed, image reviewed Assessment and Plan (1) Unspecified hydronephrosis Current Visit: Yes Status: Acute Code(s): N13.30 - UNSPECIFIED HYDRONEPHROSIS SNOMED Code(s): 62629045 Plan: The patient's postvoid residual is 179 cc. Therefore, the bilateral hydronephrosis cannot be attributed to urinary retention. She would require cystoscopy with retrograde pyelograms for further evaluation, if the patient and family desire this. Time with Patient: Greater than 30
[2023-12-17 11:31] VITALS: BP 145/67; PULSE 109
--- NOTE | 2023-12-17 11:42 | P.CNOR ---
History of Present Illness - [facility] Consult date: 12/17/23 Requesting physician: Alfredo Cantor Consult reason: other (Back pain, history of lumbar spine surgery) History of present illness: Patient is an 83-year-old male who presents to the ER for evaluation due to debility. Per the ER note patient is approaching end-of-life care and patient does have several areas throughout her body where she has pressure sores secondary to diminished mobility. Orthopedics was consulted due to back pain and history of spine surgery. Patient was seen at bedside this morning and patient did seem to be disoriented during encounter. Patient was confused as we ll and was not able to give me any significant history. According to medicine note, patient moved from [place] to [place] to live with her other daughter. Patient does have a history of spine surgery with chronic wound on the back. During the encounter, patient seemed to moan and groan and mention several times that she just wanted to . Medicine and wound care have been following. Wound care treating stage II ulcers on her left hip and back. Rest of the history was very difficult to obtain due to the patient's medical state. Past Medical History Past Medical History: Hypertension History of Any Multi-Drug Resistant Organisms: None Reported Past Surgical History: Hysterectomy, Orthopedic Surgery Past Anesthesia/Blood Transfusion Reactions: No Reported Reaction, Unable to Obtain Past Psychological History: No Psychological Hx Reported Smoking Status: Former smoker Medications and Allergies Home Medications Medication Instructions Recorded Confirmed Type Acetaminophen [Tylenol Extra 500 mg PO Q6H PRN 12/14/23 12/14/23 History Strength] Furosemide [Lasix] 20 mg PO DAILY 12/14/23 12/15/23 History Lansoprazole [Prevacid] 30 mg PO DAILY 12/14/23 12/15/23 History Losartan Potassium 50 mg PO DAILY 12/14/23 12/15/23 History Magnesium Oxide [Mag-Ox] 400 mg PO DAILY 12/14/23 12/14/23 History Morphine Sulfate ER [Ms Contin] 30 mg PO Q12HR 12/14/23 12/14/23 History Silver Sulfadiazine [Silver 1 applic TOPICAL DIRECTED 12/14/23 12/14/23 Histo ry Sulfadiazine 1%] Allergies Allergy/AdvReac Type Severity Reaction Status Date / Time acetaminophen [From Vicodin] Allergy Rash/Hives Verified 12/14/23 18:45 hydrocodone [From Vicodin] Allergy Rash/Hives Verified 12/14/23 18:45 levofloxacin [From Levaquin] Allergy Rash/Hives Verified 12/14/23 18:45 lidocaine Allergy Rash/Hives Verified 12/14/23 18:45 Penicillins Allergy Rash/Hives Verified 12/14/23 18:45 sulfamethoxazole Allergy Rash/Hives Verified 12/14/23 18:45 [From Bactrim] trimethoprim [From Bactrim] Allergy Rash/Hives Verified 12/14/23 18:45 Physical Examination Exam was difficult to obtain due to patient's medical state. Upon examining the spine when patient turned to the side there were optifoam dressing over the mid to lower back at midline and on the right paravertebral region. There did appear to be multiple ulcers on the back measuring about 1 x 2 cm in diameter. Patient had significant tenderness to patient diffusely throughout the mid and lower back at midline and in the paravertebral regions especially near the wounds. Patient is able to grossly move bilateral upper and lower extremities albeit with pain. Motor exam roughly intact. Radial pulse intact, 2+ bilaterally. Cap refill under 3 seconds in digits of upper extremities. Results - Labs Labs: Abnormal Lab Results - Last 24 Hours (Table) 12/16/23 12/16/23 12/17/23 Range/Units 10:20 10:20 08:17 WBC 13.4 H (3.8-10.6) k/uL Sodium 135 L (137-145) mmol/L Potassium 2.9 L (3.5-5.1) mmol/L BUN 54 H (7-17) mg/dL Creatinine 1.29 H (0.52-1.04) mg/dL Glucose 118 H (74-99) mg/dL Calcium 7.9 L (8.4-10.2) mg/dL C-Reactive Protein 21.8 H (<1.0) mg/dL Microbiology - Last 24 Hours (Table) 12/14/23 19:00 Blood Culture Gram Stain - Final Blood Blood Culture - Final Methicillin resist S. aureus 12/14/23 19:19 Blood Culture Gram Stain - Final Blood Blood Culture - Final Methicillin resist S. aureus Molecular ID H & H 12/14/23 12/15/23 12/17/23 Range/Units 19:17 03:28 08:17 Hgb 14.6 11.5 D 12.6 (11.4-16.0) gm/dL Hct 46.3 H 36.0 38.6 (34.0-46.0) % Coagulation 12/14/23 Range/Units 19:17 INR 1.0 (<1.2) Result Diagrams: 12/17/23 08:17 12/16/23 10:20 Assessment and Plan Assessment: 1. Stage II ulcers in the sacral and left hip region; ulcers lumbar spine; back pain 2. Multiple medical comorbidities Plan: 1. Stage II ulcers in the sacral and left hip region; ulcers lumbar spine; back pain; h/o lumbar fusion - I did discuss the findings of the exam with my attending, Dr. Manley. At this time we are not recommending any orthopedic surgical intervention. we recommend conservative measures with use of pain medication and PT/OT. Patient may weight-bear as tolerated with walker and assistance as needed. We'll defer the rest of management to the primary care team and wound care team during patient stay in hospital. Patient is stable for orthopedic standpoint for discharge. At this time orthopedics is signing off. Patient may follow-up in the outpatient setting with Dr. Manley as needed. Please do not hesitate to contact us for any further questions. 2. Appreciate medical management 3. Pain management - morphine 4. GI prophylaxis recs 5. DVT prophylaxis recs 6. PT/OT - weightbearing as tolerated with walker and assistance 7. Encourage incentive spirometer use 8. Appreciate consult Time with Patient: Less than 30
--- NOTE | 2023-12-17 13:21 | P.PN ---
Subjective Progress Note Date: 12/17/23 patient is 83-year-old lady with chronic debility and multiple back surgeries who was brought in the ER for evaluation for weakness. Patient is a poor historian and most of the history has been taken from the electronic medical records. According to which patient just recently moved from [place] where she was living with her daughter and apparently was not in best living conditions being taken care of. Patient brought to [place] by her other daughter. Patient has history of back surgery with a chronic wound on the back. Patient has generalized body aches and severe back pain patient moans on being moved or changing positions. Patient has multiple sores on her body. Patient unable to move on her own. Because of these complaints, patient was brought to the ER Initial lab work done in the ER showed WBC 35.7, hemoglobin 14.6, platelet count 508, INR 1, sodium 130, potassium 3.4, BUN 75, creatinine 3.37 lactate 2.1 phosphorus 6.4 troponin 0.064 proBNP 3900 EKG done in the ER showed heart rate of 122, no ST segment elevation or depression seen, T-wave inversions seen in leads III and aVF. Chest x-ray done in the ER showed no acute findings concerning for pneumonia Patient admitted to internal medicine service 12/15. Patient seen and examined. Patient continues to have back pain. Patient is not very compliant with treatment regimen. CT chest done showed small effusion with patchy bilateral basilar airspace disease. CT abdominal pelvis done showed bilateral hydronephrosis and hydroureter. Extensive thoracolumbar and pelvic posterior fusion changes and wide laminectomy throughout the lumbar spine. Possible fluid collection in the laminectomy bed that may span 7.8 x 3.3 cm. 12/16. Patient seen and examined. Had a long discussion with patient's daughters and patient granddaughter regarding patient poor prognosis and goals of care, they understand the patient has poor prognosis and want to proceed with hospice. They are also agreeable to stop all antibiotics. Keeping in mind patient family wishes, hospice was consulted REVIEW OF SYSTEMS: Review of system cannot be obtained as patient is lethargic PHYSICAL EXAMINATION: GENERAL: The patient is lethargic , cachectic, chronically ill looking HEENT: Pupils are round and equally reacting to light. EOMI. No scleral icterus. No conjunctival pallor. Normocephalic, atraumatic. No pharyngeal erythema. No thyromegaly. CARDIOVASCULAR: S1 and S2 present. No murmurs, rubs, or gallops. PULMONARY: Chest is clear to auscultation, no wheezing or crackles. ABDOMEN: Soft, nontender, nondistended, normoactive bowel sounds. No palpable organomegaly. MUSCULOSKELETAL: No joint swelling or deformity. EXTREMITIES: No cyanosis, clubbing, or pedal edema. NEUROLOGICAL: Gross neurological examination did not reveal any focal deficits. SKIN: Lumbar area wound seen, Assessment and plan Hyponatremia Hypokalemia Acute kidney injury MRSA bacteremia Anion gap metabolic acidosis Bilateral hydronephrosis Hyperphosphatemia Lactic acidosis Elevated troponin Hypertension Severe malnutrition Cachectic Monitor vital signs Monitor CBC Monitor CMP Continue telemetry monitoring Follow-up on blood cultures Continue wound care DC antibiotics Continue IV fluids Continue wound care ID following Had a long discussion with patient's daughters and patient granddaughter regarding patient poor prognosis and goals of care, they understand the patient has poor prognosis and want to proceed with hospice. They are also agreeable to stop all antibiotics. Keeping in mind patient family wishes, hospice was consulted Labs and medication were reviewed.. Continue same treatment. Continue with symptomatic treatment. Resume home medication. Monitor labs and vitals. DVT and GI prophylaxis. Further recommendations as per clinical course of the patient Dictation was produced using [employer] dictation software. please excuse any grammatical, word or spelling errors. Objective - Vital Signs Vital signs: Vital Signs Temp 97.4 F L 12/17/23 07:42 Pulse 109 H 12/17/23 12:53 Resp 18 12/17/23 12:53 BP 145/67 12/17/23 11:16 Pulse Ox 100 12/17/23 11:16 FiO2 Intake & Output 12/16/23 12/17/23 12/17/23 18:59 06:59 18:59 Weight 38.555 kg 38.555 kg Other: Voiding Method External Catheter Diaper Diaper Incontinent Incontinent # Voids 1 1 # Bowel Movements 1 - Labs CBC & Chem 7: 12/17/23 08:17 12/16/23 10:20 Labs: Abnormal Lab Results - Last 24 Hours (Table) 12/16/23 12/17/23 Range/Units 10:20 08:17 WBC 13.4 H (3.8-10.6) k/uL Sodium 135 L (137-145) mmol/L Potassium 2.9 L (3.5-5.1) mmol/L BUN 54 H (7-17) mg/dL Creatinine 1.29 H (0.52-1.04) mg/dL Glucose 118 H (74-99) mg/dL Calcium 7.9 L (8.4-10.2) mg/dL Microbiology - Last 24 Hours (Table) 12/16/23 08:11 Blood Culture Gram Stain - Preliminary Blood 12/14/23 19:00 Blood Culture Gram Stain - Final Blood Blood Culture - Final Methicillin resist S. aureus 12/14/23 19:19 Blood Culture Gram Stain - Final Blood Blood Culture - Final Methicillin resist S. aureus Molecular ID
[2023-12-17 13:25] LABS: Band Neutrophils % 15 %; Basophils # (M) 0.13 k/uL (0-0.2); Lymphocytes # (M) 0.27 k/uL (1.0-4.8); Monocytes # (M) 0.67 k/uL (0-1.0); Neutrophils % (M) 77 %; Nucleated Red Blood Cells 0 /100 WBC (0-0); Total Cells Counted 100
[2023-12-17 13:26] LABS: RBC Morphology Normal
[2023-12-17 13:27] LABS: Platelet Count 135 k/uL (150-450)
--- NOTE | 2023-12-17 14:20 | P.PN ---
Subjective patient is seen for follow-up for acute kidney injury. Patient is awake. No acute distress, no significant complaints today.. Renal function has improved with creatinine down to 1.29 yesterday. Objective - Vital Signs Vital signs: Vital Signs Temp 97.4 F L 12/17/23 07:42 Pulse 109 H 12/17/23 12:53 Resp 18 12/17/23 12:53 BP 145/67 12/17/23 11:16 Pulse Ox 100 12/17/23 11:16 FiO2 Intake & Output 12/16/23 12/17/23 12/17/23 18:59 06:59 18:59 Weight 38.555 kg 38.555 kg Other: Voiding Method External Catheter Diaper Diaper Incontinent Incontinent # Voids 1 1 # Bowel Movements 1 - Exam patient is awake, comfortable, no acute distress Examination of the heart S1 and S2 Examination of the lungs bilateral breath sounds are heard Abdomen is soft nontender Examination of lower extremity shows no edema. Significant tenderness noted in the back area. patient is not allowing to exam ine - Labs CBC & Chem 7: 12/17/23 08:17 12/16/23 10:20 Labs: Abnormal Lab Results - Last 24 Hours (Table) 12/17/23 Range/Units 08:17 WBC 13.4 H (3.8-10.6) k/uL Plt Count 135 L D (150-450) k/uL Neutrophils # (Manual) 12.30 H (1.3-7.7) k/uL Lymphocytes # (Manual) 0.27 L (1.0-4.8) k/uL Microbiology - Last 24 Hours (Table) 12/16/23 08:11 Blood Culture Gram Stain - Preliminary Blood 12/14/23 19:00 Blood Culture Gram Stain - Final Blood Blood Culture - Final Methicillin resist S. aureus 12/14/23 19:19 Blood Culture Gram Stain - Final Blood Blood Culture - Final Methicillin resist S. aureus Molecular ID Assessment and Plan Assessment: 1. Acute kidney injury, obstructive uropathy as well as prerenal component. Patient was uncooperative during ultrasound exam. Computed tomography scan shows bilateral severe hydronephrosis. Renal function has improved with creatinine down to 1.2 mg/dL 2. Anion gap metabolic acidosis secondary to acute kidney injury and lactic acidosis 3. Possible underlying chronic kidney disease 4. Hyperphosphatemia associated with acute kidney injury 5. History of hypertension with blood pressure currently low. Angiotensin receptor blockers on hold. 6. Hypovolemic hyponatremia improved with IV hydration. 7. Hypokalemia Plan: Continue with IV fluids. Hospice care has been consulted.
--- NOTE | 2023-12-17 15:33 | P.PN ---
Subjective Progress Note Date: 12/17/23 Principal diagnosis: Reason for follow-up with MRSA bacteremia Patient is a 83-year-old female with a past medical history significant for hypertension chronic back pain in this patient who did have a history of lumbar spinal surgery with hardware and apparently has been dealing with a nonhealing wound and exposure of the hardware to the lumbar spine, has been brought into the hospital for weakness generalized bodyaches noticed to have elevated white count workup which shows fluid collection in the laminectomy bed did have a positive blood culture with MRSA. On today's evaluation that is a 12/17/2023, the patient continues to be afebrile, the patient is on 2 L nasal cannula oxygen and breathing comfortably, the Pt does not seem to be any distress, is sleepy lethargic no vomiting diarrhea or any other changes reported by nursing staff. Patient white count of 13.4, creatinine is 1.29 blood culture repeat from yesterday positive as well Objective - Vital Signs Vital signs: Vital Signs Temp 97.4 F L 12/17/23 07:42 Pulse 109 H 12/17/23 12:53 Resp 18 12/17/23 12:53 BP 145/67 12/17/23 11:16 Pulse Ox 100 12/17/23 11:16 FiO2 Intake & Output 12/16/23 12/17/23 12/17/23 18:59 06:59 18:59 Weight 38.555 kg 38.555 kg Other: Voiding Method External Catheter Diaper Diaper Incontinent Incontinent # Voids 1 1 # Bowel Movements 1 - Exam GENERAL DESCRIPTION: An elderly female lying in bed in no distress RESPIRATORY SYSTEM: Unlabored breathing , decreased breath sounds at bases HEART: S1 S2 regular rate and rhythm , ABDOMEN: Soft , no tenderness EXTREMITIES: No edema feet - Labs CBC & Chem 7: 12/17/23 08:17 12/16/23 10:20 Labs: Abnormal Lab Results - Last 24 Hours (Table) 12/16/23 12/17/23 Range/Units 10:20 08:17 WBC 13.4 H (3.8-10.6) k/uL Sodium 135 L (137-145) mmol/L Potassium 2.9 L (3.5-5.1) mmol/L BUN 54 H (7-17) mg/dL Creatinine 1.29 H (0.52-1.04) mg/dL Glucose 118 H (74-99) mg/dL Calcium 7.9 L (8.4-10.2) mg/dL Microbiology - Last 24 Hours (Table) 12/16/23 08:11 Blood Culture Gram Stain - Preliminary Blood 12/14/23 19:00 Blood Culture Gram Stain - Final Blood Blood Culture - Final Methicillin resist S. aureus 12/14/23 19:19 Blood Culture Gram Stain - Final Blood Blood Culture - Final Methicillin resist S. aureus Molecular ID Assessment and Plan (1) MRSA bacteremia Current Visit: Yes Status: Acute Code(s): R78.81 - BACTEREMIA; B95.62 - METHICILLIN RESIS STAPH [facility]CT [facility] Code(s): 73604548463479322 (2) Leukocytosis Current Visit: Yes Status: Acute Code(s): D72.829 - ELEVATED WHITE BLOOD CELL COUNT, UNSPECIFIED SNOMED Code(s): 461907312 (3) Abscess in epidural space of lumbar spine Current Visit: Yes Status: Acute Code(s): G06.1 - INTRASPINAL ABSCESS AND GRANULOMA SNOMED Code(s): 490350062 (4) Allergy to multiple antibiotics Current Visit: Yes Status: Acute Code(s): Z88.1 - ALLERGY STATUS TO OTHER ANTIBIOTIC AGENTS SNOMED Code(s): 939281473 Plan: 1patient presented to hospital with generalized weakness body aches and this patient who did have a chronic back pain multiple surgeries on the back, now with evidence of MRSA bacteremia CT abdominal pelvis did shows evidence of fluid collection in the laminectomy bed concerning for an abscess 2-patient with multiple antibiotic ALLERGIES that would limit the number of antibiotic safe to use 3-renal insufficiency high risk of nephrotoxicity from vancomycin 4-patient has been evaluated by spine surgery and has cleared the patient for discharge 5patient likely has infected hardware to the lumbar spine area and possible abscess. Discussion with the 2 daughters at the bedside patient considered to be too fragile for any surgical intervention and they have opted for hospice which may be appropriate antibiotics can be safely discontinued, family questions and concerns were answered in layman terms, ID will sign off Dictation was produced using [employer] dictation software. please excuse any grammatical, word or spelling errors. Time with Patient: Less than 30
--- NOTE | 2023-12-18 12:24 | P.DS ---
Providers Date of admission: 12/14/23 21:42 Expected date of discharge: 12/17/23 Attending physician: Michael Phelps Consults: 12/14/23 21:41 Consult Physician Routine Consulting Provider: Jannette Arvizu Consult Reason/Comments: wounds Do you want consulting provider notified?: Yes 12/14/23 21:46 Consult Physician Routine Consulting Provider: Johanne Wesley Consult Reason/Comments: CKD Do you want consulting provider notified?: Yes 12/15/23 13:58 Consult Physician Routine Consulting Provider: Neptali Glaser Consult Reason/Comments: hydronephrosis Do you want consulting provider notified?: Yes 12/16/23 13:06 Consult Physician Routine Consulting Provider: Daniel Manley Consult Reason/Comments: Back pain, history of lumbar spine surgery Do you want consulting provider notified?: Yes Primary care physician: Milan Monk MD Hospital Course: Discharge diagnoses; Hyponatremia Hypokalemia Acute kidney injury MRSA bacteremia Anion gap metabolic acidosis Bilateral hydronephrosis Hyperphosphatemia Lactic acidosis Elevated troponin Hypertension Severe malnutrition Cachectic Hospital course; patient is 83-year-old lady with chronic debility and multiple back surgeries who was brought in the ER for evaluation for weakness. Patient is a poor historian and most of the history has been taken from the electronic medical records. According to which patient just recently moved from [place] where she was living with her daughter and apparently was not in best living conditions being taken care of. Patient brought to [place] by her other daughter. Patient has history of back surgery with a chronic wound on the back. Patient has generalized body aches and severe back pain patient moans on being moved or changing positions. Patient has multiple sores on her body. Patient unable to move on her own. Because of these complaints, patient was brought to the ER Initial lab work done in the ER showed WBC 35.7, hemoglobin 14.6, platelet count 508, INR 1, sodium 130, potassium 3.4, BUN 75, creatinine 3.37 lactate 2.1 phosphorus 6.4 troponin 0.064 proBNP 3900 EKG done in the ER showed heart rate of 122, no ST segment elevation or depression seen, T-wave inversions seen in leads III and aVF. Chest x-ray done in the ER showed no acute findings concerning for pneumonia Patient admitted to internal medicine service 12/15. Patient seen and examined. Patient continues to have back pain. Patient is not very compliant with treatment regimen. CT chest done showed small effusion with patchy bilateral basilar airspace disease. CT abdominal pelvis done showed bilateral hydronephrosis and hydroureter. Extensive thoracolumbar and pelvic posterior fusion changes and wide laminectomy throughout the lumbar spine. Possible fluid collection in the laminectomy bed that may span 7.8 x 3.3 cm. 12/16. Patient seen and examined. Had a long discussion with patient's daughters and patient granddaughter regarding patient poor prognosis and goals of care, they understand the patient has poor prognosis and want to proceed with hospice. They are also agreeable to stop all antibiotics. Keeping in mind patient family wishes, hospice was consulted. Hospice evaluated the patient and recommended patient qualifies for [facility], patient discharged to inpatient hospice PHYSICAL EXAMINATION: GENERAL: The patient is lethargic , cachectic, chronically ill looking HEENT: Pupils are round and equally reacting to light. EOMI. No scleral icterus. No conjunctival pallor. Normocephalic, atraumatic. No pharyngeal erythema. No thyromegaly. CARDIOVASCULAR: S1 and S2 present. No murmurs, rubs, or gallops. PULMONARY: Chest is clear to auscultation, no wheezing or crackles. ABDOMEN: Soft, nontender, nondistended, normoactive bowel sounds. No palpable organomegaly. MUSCULOSKELETAL: No joint swelling or deformity. EXTREMITIES: No cyanosis, clubbing, or pedal edema. NEUROLOGICAL: Gross neurological examination did not reveal any focal deficits. SKIN: Lumbar area wound seen, Dictation was produced using [employer] dictation software. please excuse any grammatical, word or spelling errors. Patient Condition at Discharge: Poor Plan - Discharge Summary New Discharge Prescriptions: No Action Lansoprazole [Prevacid] 30 mg PO DAILY Furosemide [Lasix] 20 mg PO DAILY Morphine Sulfate ER [Ms Contin] 30 mg PO Q12HR Magnesium Oxide [Mag-Ox] 400 mg PO DAILY Acetaminophen [Tylenol Extra Strength] 500 mg PO Q6H PRN PRN Reason: Fever And/ Or Pain Silver Sulfadiazine [Silver Sulfadiazine 1%] 1 applic TOPICAL DIRECTED Losartan Potassium 50 mg PO DAILY Discharge Medication List Acetaminophen [Tylenol Extra Strength] 500 mg PO Q6H PRN 12/14/23 [History] Furosemide [Lasix] 20 mg PO DAILY 12/14/23 [History] Lansoprazole [Prevacid] 30 mg PO DAILY 12/14/23 [History] Losartan Potassium 50 mg PO DAILY 12/14/23 [History] Magnesium Oxide [Mag-Ox] 400 mg PO DAILY 12/14/23 [History] Morphine Sulfate ER [Ms Contin] 30 mg PO Q12HR 12/14/23 [History] Silver Sulfadiazine [Silver Sulfadiazine 1%] 1 applic TOPICAL DIRECTED 12/14/23 [History] Follow up Appointment(s)/Referral(s): Milan Monk MD [Primary Care Provider] - 1-2 days Discharge Disposition: HOME WITH HOSPICE
== END 2023-12-17 15:31 | disposition hospice, inpatient (51) | DRG 862 ==
LOC: EC 18:31 → SUPCPDRO 18:31 → 3SCARD 21:42
PROVIDERS: ADMIT Hospitalist; ATTEND Hospitalist
DX: T81.42XA Infection following a procedure, deep incisional surgical site, initial encounter (principal); A41.02 Sepsis due to Methicillin resistant Staphylococcus aureus; G06.1 Intraspinal abscess and granuloma; E43 Unspecified severe protein-calorie malnutrition; R64 Cachexia; N17.9 Acute kidney failure, unspecified; E87.20 Acidosis, unspecified; E87.1 Hypo-osmolality and hyponatremia; N13.30 Unspecified hydronephrosis; L98.426 Non-pressure chronic ulcer of back with bone involvement without evidence of necrosis; L03.312 Cellulitis of back [any part except buttock and flank]; L98.496 Non-pressure chronic ulcer of skin of other sites with bone involvement without evidence of necrosis; Z68.1 Body mass index [BMI] 19.9 or less, adult; T81.44XA Sepsis following a procedure, initial encounter; L89.222 Pressure ulcer of left hip, stage 2; L89.152 Pressure ulcer of sacral region, stage 2; I12.9 Hypertensive chronic kidney disease with stage 1 through stage 4 chronic kidney disease, or unspecified chronic kidney disease; N18.9 Chronic kidney disease, unspecified; Z28.310 Unvaccinated for COVID-19; Z51.5 Encounter for palliative care; E83.39 Other disorders of phosphorus metabolism; E86.1 Hypovolemia; E87.6 Hypokalemia; G89.29 Other chronic pain; R32 Unspecified urinary incontinence; R79.89 Other specified abnormal findings of blood chemistry; Z79.891 Long term (current) use of opiate analgesic; Z79.899 Other long term (current) drug therapy; Z87.891 Personal history of nicotine dependence; Z71.3 Dietary counseling and surveillance; Z88.4 Allergy status to anesthetic agent; Z88.1 Allergy status to other antibiotic agents; Z88.5 Allergy status to narcotic agent; Z88.0 Allergy status to penicillin; Z88.2 Allergy status to sulfonamides
CPT/HCPCS: 36415; 71045; 71250; 74176; 76770; 80048; 80053; 83605; 83735; 83880; 84100; 84484; 85025; 85610; 85652; 85730; 86140; 87040; 87077; 87186; 93005; 94760; 96361; 96365; 96366; 96367; 96375; 96376; 99291

== ENCOUNTER 2023-12-17 14:40 | Inpatient (IN) | payer MEDICAID ==
[2023-12-17] MEDS ORDERED: ONDANSETRON 4 MG/2 ML VIAL IVP PRN (15:02)
[2023-12-17] MEDS ORDERED: DRY MOUTH SPRAY 44.3 SPRAY/44.3 ML SPRAY MUCOUS MEM PRN (15:02)
[2023-12-17] MEDS ORDERED: GLYCOPYRROLATE 0.2 MG/ML 2 ML VIAL IVP PRN (15:02)
[2023-12-17] MEDS ORDERED: ATROPINE OPHTH SOLN 1% 5ML BTL SUBLINGUAL PRN (15:02)
[2023-12-17] MEDS ORDERED: MORPHINE SULFATE 4 MG/ML SYRINGE IV PRN (15:02)
[2023-12-17] MEDS ORDERED: ACETAMINOPHEN SUPPOSITORY 650 MG SUPP RECTAL PRN (15:02)
[2023-12-17] MEDS: MORPHINE SULFATE (100 MG/2 ML) 100 MG in SODIUM CHLORIDE 0.9% 100 ML IV SCH (16:23)
[2023-12-17] MEDS: SCOPOLAMINE 1 MG/72 HR PATCH TRANSDERM SCH (16:32)
[2023-12-18 10:07] VITALS: BP 105/54; PULSE 102; RESP 14
--- NOTE | 2023-12-18 11:54 | P.PN ---
Progress Note - Text Progress Note Date: 12/18/23 CT scan has shown evidence of bilateral hydronephrosis. I discussed this finding with the patient's daughters this morning, who are at the bedside. They have elected to proceed with Hospice care, and therefore they desire no further evaluation or treatment for the hydronephrosis. Impression: Bilateral hydronephrosis Plan: Observe
--- NOTE | 2023-12-18 12:28 | P.HPIM ---
History of Present Illness H&P Date: 12/18/23 History of present illness; patient is 83-year-old lady with chronic debility and multiple back surgeries who was brought in the ER for evaluation for weakness. She was admitted to internal medicine service, patient was found to be bacteremic and had acute kidney injury. Patient was started on broad-spectrum antibiotics and nephrology, ID, urology and orthopedic spine were consulted. While in the hospital, patient was not doing well, all specialities involved in the care of this patient agreed that the patient was a candidate for hospice. Family meeting took place between internal medicine team and family and decision was made to make patient hospice and was transitioned to [facility]. REVIEW OF SYSTEMS: Review of system cannot be obtained as patient is currently comfort care measures and is very lethargic and not arousable PHYSICAL EXAMINATION: GENERAL: The patient is lethargic , cachectic, chronically ill looking HEENT: Pupils are round and equally reacting to light. EOMI. No scleral icterus. No conjunctival pallor. Normocephalic, atraumatic. No pharyngeal erythema. No thyromegaly. CARDIOVASCULAR: S1 and S2 present. No murmurs, rubs, or gallops. PULMONARY: Chest is clear to auscultation, no wheezing or crackles. ABDOMEN: Soft, nontender, nondistended, normoactive bowel sounds. No palpable organomegaly. MUSCULOSKELETAL: No joint swelling or deformity. EXTREMITIES: No cyanosis, clubbing, or pedal edema. NEUROLOGICAL: Lethargic, not arousable SKIN: Lumbar area wound seen, Assessment and plan Hyponatremia Hypokalemia Acute kidney injury MRSA bacteremia Anion gap metabolic acidosis Bilateral hydronephrosis Hyperphosphatemia Lactic acidosis Elevated troponin Hypertension Severe malnutrition Cachectic Plan; Continue comfort care measures Family at the bedside, they were updated and all questions answered Labs and medication were reviewed.. Continue same treatment. Continue with symptomatic treatment. Resume home medication. Monitor labs and vitals. DVT and GI prophylaxis. Further recommendations as per clinical course of the patient Dictation was produced using [employer] dictation software. please excuse any grammatical, word or spelling errors. Past Medical History Past Medical History: Hypertension History of Any Multi-Drug Resistant Organisms: None Reported Past Surgical History: Hysterectomy, Orthopedic Surgery Past Anesthesia/Blood Transfusion Reactions: No Reported Reaction, Unable to Obtain Past Psychological History: No Psychological Hx Reported Smoking Status: Former smoker Medications and Allergies Home Medications Medication Instructions Recorded Confirmed Type Acetaminophen [Tylenol Extra 500 mg PO Q6H PRN 12/14/23 12/17/23 History Strength] Furosemide [Lasix] 20 mg PO DAILY 12/14/23 12/17/23 History Lansoprazole [Prevacid] 30 mg PO DAILY 12/14/23 12/17/23 History Losartan Potassium 50 mg PO DAILY 12/14/23 12/17/23 History Magnesium Oxide [Mag-Ox] 400 mg PO DAILY 12/14/23 12/17/23 History Morphine Sulfate ER [Ms Contin] 30 mg PO Q12HR 12/14/23 12/17/23 History Silver Sulfadiazine [Silver 1 applic TOPICAL DIRECTED 12/14/23 12/17/23 History Sulfadiazine 1%] Allergies Allergy/AdvReac Type Severity Reaction Status Date / Time acetaminophen [From Vicodin] Allergy Rash/Hives Verified 12/14/23 18:45 hydrocodone [From Vicodin] Allergy Rash/Hives Verified 12/14/23 18:45 levofloxacin [From Levaquin] Allergy Rash/Hives Verified 12/14/23 18:45 lidocaine Allergy Rash/Hives Verified 12/14/23 18:45 Penicillins Allergy Rash/Hives Verified 12/14/23 18:45 sulfamethoxazole Allergy Rash/Hives Verified 12/14/23 18:45 [From Bactrim] trimethoprim [From Bactrim] Allergy Rash/Hives Verified 12/14/23 18:45 Physical Exam Vitals: Vital Signs Pulse Resp BP Pulse Ox 12/18/23 09:42 102 H 14 105/54 98 12/18/23 03:53 100 9 L 12/17/23 20:00 78 9 L 12/17/23 17:06 100 12/17/23 16:39 108 H 17 163/71 100 Intake and Output 12/17/23 12/18/23 12/18/23 22:59 06:59 14:59 Intake Total 8.058 16.422 Output Total 275 Balance -266.942 16.422 Intake: Intake, IV Titration 8.058 16.422 Amount Morphine Sulfate (100 mg/ 8.058 16.422 2 ml) 100 mg In Sodium Chloride 0.9% 100 ml @ 1 MG/HR 1.02 mls/hr IV . Q24H [facility] Rx#:[id number] Output: Urine 275 Other: Voiding Method Incontinent Indwelling Catheter # Voids 1 # Bowel Movements 1 Weight 38.5 kg
[2023-12-18] MEDS: LORazepam 1 MG/0.5 ML VIAL IV PRN (14:47)
--- NOTE | 2023-12-19 13:00 | P.DS ---
Providers Date of admission: 12/17/23 15:36 Expected date of discharge: 12/19/23 Attending physician: Alfredo Cantor MD Primary care physician: Milan Monk MD Hospital Course: Discharge diagnoses; Hyponatremia Hypokalemia Acute kidney injury MRSA bacteremia Anion gap metabolic acidosis Bilateral hydronephrosis Hyperphosphatemia Lactic acidosis Elevated troponin Hypertension Severe malnutrition Cachectic Hospital course; patient is 83-year-old lady with chronic debility and multiple back surgeries who was brought in the ER for evaluation for weakness. She was admitted to internal medicine service, patient was found to be bacteremic and had acute kidney injury. Patient was started on broad-spectrum antibiotics and nephrology, ID, urology and orthopedic spine were consulted. While in the hospital, patient was not doing well, all specialities involved in the care of this patient agreed that the patient was a candidate for hospice. Family meeting took place between internal medicine team and family and decision was made to make patient hospice and was transitioned to [facility]. 12/18. Patient seen and examined. Family at the bedside. Continues to be comfortable. Patient was later pronounced on 12/19/2023 at 9:54 AM. Family was updated of the loss Dictation was produced using [employer] dictation software. please excuse any grammatical, word or spelling errors. Patient Condition at Discharge: Poor Plan - Discharge Summary New Discharge Prescriptions: No Action Lansoprazole [Prevacid] 30 mg PO DAILY Furosemide [Lasix] 20 mg PO DAILY Morphine Sulfate ER [Ms Contin] 30 mg PO Q12HR Magnesium Oxide [Mag-Ox] 400 mg PO DAILY Acetaminophen [Tylenol Extra Strength] 500 mg PO Q6H PRN PRN Reason: Fever And/ Or Pain Silver Sulfadiazine [Silver Sulfadiazine 1%] 1 applic TOPICAL DIRECTED Losartan Potassium 50 mg PO DAILY Discharge Medication List Acetaminophen [Tylenol Extra Strength] 500 mg PO Q6H PRN 12/14/23 [History] Furosemide [Lasix] 20 mg PO DAILY 12/14/23 [History] Lansoprazole [Prevacid] 30 mg PO DAILY 12/14/23 [History] Losartan Potassium 50 mg PO DAILY 12/14/23 [History] Magnesium Oxide [Mag-Ox] 400 mg PO DAILY 12/14/23 [History] Morphine Sulfate ER [Ms Contin] 30 mg PO Q12HR 12/14/23 [History] Silver Sulfadiazine [Silver Sulfadiazine 1%] 1 applic TOPICAL DIRECTED 12/14/23 [History]
== END 2023-12-19 13:01 | disposition expired | DRG 951 ==
LOC: 3SCARD 15:36
PROVIDERS: ADMIT Internal Medicine; ATTEND Internal Medicine
DX: Z51.5 Encounter for palliative care (principal); E43 Unspecified severe protein-calorie malnutrition; R78.81 Bacteremia; E87.1 Hypo-osmolality and hyponatremia; E87.20 Acidosis, unspecified; N13.30 Unspecified hydronephrosis; N17.9 Acute kidney failure, unspecified; R64 Cachexia; B95.62 Methicillin resistant Staphylococcus aureus infection as the cause of diseases classified elsewhere; Z66 Do not resuscitate; E83.39 Other disorders of phosphorus metabolism; E87.6 Hypokalemia; I10 Essential (primary) hypertension; R79.89 Other specified abnormal findings of blood chemistry; Z79.899 Other long term (current) drug therapy; Z87.891 Personal history of nicotine dependence; Z88.6 Allergy status to analgesic agent; Z88.5 Allergy status to narcotic agent; Z88.0 Allergy status to penicillin; Z88.2 Allergy status to sulfonamides
CPT/HCPCS: 94760